=== PATIENT | female | born 1950 | race Caucasian/White ===

== ENCOUNTER 2018-01-25 16:34 | Emergency (ER) | payer OTHER ==
[2018-01-25] MEDS ORDERED: IBUPROFEN 400 MG TAB ONE (18:50)
[2018-01-25] MEDS ORDERED: HYDROCODONE/APAP 5/325 MG TAB ONE (18:50)
[2018-01-25] MEDS ORDERED: TETANUS & DIPHTHERIA TOX,ADULT 0.5 ML VIAL ONE (18:51)
[2018-01-25] MEDS ORDERED: LIDOCAINE 1% W/EPI 1:100,000 MDV 50 ML VIAL ONE (18:51)
--- NOTE | 2018-01-25 19:31 | RAD REPORT ---
EXAM DESCRIPTION: CT - CTHCSPWOC - 01/25/2018 7:18 pm CLINICAL HISTORY: Fall with head and neck injury, laceration COMPARISON: None. TECHNIQUE: Axial 5 mm thick images of the head were obtained. Axial 2 mm thick images of the cervic al spine were obtained with sagittal and coronal reconstruction images generated and reviewed. All CT scans are performed using dose optimization technique as appropriate and may include automated exposure control or mA/KV adjustment according to patient size. FINDINGS: No intracranial hemorrhage, mass, edema or acute intracranial finding. No acute cortical i nfarction. Patient has only mild degree of atrophy. Ventricles are normal in size. There is very exte nsive diminished attenuation throughout the cerebral hemispheric white matter with basal ganglia invo lvement. Brainstem is involved as well. Arterial and physiologic calcifications are present. No extra -axial fluid collections. Mastoid air cells and paranasal sinuses are clear. No globe or orbit abnorm ality seen. Cervical body height and alignment are normal. Slight retrolisthesis of C5 on C6 noted. Prominent C5- 6 disc space narrowing. C3-4, C4-5 and C6-7 disc space narrowing also present. Mild bony foraminal en croachment changes at C5-6. No fracture or acute bony abnormality. No pathologic bone process. Centra l canal detail is inherently limited. No paraspinal mass or hematoma. IMPRESSION: No hemorrhage, edema or acute intracranial finding. 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 Cervical spine degenerative change with no acute finding.
--- NOTE | 2018-01-25 19:34 | EDPHYS ---
Physician Documentation [facility] Name: Gabriella Leone Age: 67 yrs Sex: Female : 1950 Arrival Date: 01/25/2018 Time: 16:37 Bed 25 Private MD: Asa Muniz V ED Physician Adrien Ruiz HPI: 01/25 18:38 This 67 yrs old Female presents to ER via Ambulatory with complaints of Head jose Injury-Adult. 18:38 The patient or guardian reports a laceration, pain, tenderness. The complaints affect jose the top of head and left frontal area. Context of injury: The problem was sustained at home. Onset: The symptoms/episode began/occurred just prior to arrival. Associated signs and symptoms: The patient has no apparent associated signs or symptoms, Loss of consciousness: This patient did not experience any loss of consciousness. Severity of symptoms: At their worst the symptoms were mild, in the emergency department the symptoms are unchanged. The patient has not experienced similar symptoms in the past. Historical: - Allergies: 16:50 No Known Allergies; rk2 - Immunization history:: Flu vaccine status is unknown. - Social history:: Smoking status: Patient/guardian denies using tobacco, never smoked. - Family history:: not pertinent. ROS: 18:38 Constitutional: Negative for fever, chills, and weight loss, Eyes: Negative for injury, jose pain, redness, and discharge, ENT: Negative for injury, pain, and discharge, Neck: Negative for injury, pain, and swelling, Cardiovascular: Negative for chest pain, palpitations, and edema, Respiratory: Negative for shortness of breath, cough, wheezing, and pleuritic chest pain, Abdomen/GI: Negative for abdominal pain, nausea, vomiting, diarrhea, and constipation, Back: Negative for injury and pain, : Negative for injury, bleeding, discharge, and swelling, MS/Extremity: Negative for injury and deformity, Neuro: Negative for headache, weakness, numbness, tingling, and seizure, Psych: Negative for depression, anxiety, suicide ideation, homicidal ideation, and hallucinations, Allergy/Immunology: Negative for hives, rash, and allergies, Endocrine: Negative for neck swelling, polydipsia, polyuria, polyphagia, and marked weight changes, Hematologic/Lymphatic: Negative for swollen nodes, abnormal bleeding, and unusual bruising. 18:38 Skin: Positive for laceration(s), of the top of head and left frontal area. Exam: 18:38 Constitutional: This is a well developed, well nourished patient who is awake, alert, jose and in no acute distress. Eyes: Pupils equal round and reactive to light, extra-ocular motions intact. Lids and lashes normal. Conjunctiva and sclera are non-icteric and not injected. Cornea within normal limits. Periorbital areas with no swelling, redness, or edema. ENT: Nares patent. No nasal discharge, no septal abnormalities noted. Tympanic membranes are normal and external auditory canals are clear. Oropharynx with no redness, swelling, or masses, exudates, or evidence of obstruction, uvula midline. Mucous membranes moist. Neck: Trachea midline, no thyromegaly or masses palpated, and no cervical lymphadenopathy. Supple, full range of motion without nuchal rigidity, or vertebral point tenderness. No Meningismus. Chest/axilla: Normal chest wall appearance and motion. Nontender with no deformity. No lesions are appreciated. Cardiovascular: Regular rate and rhythm with a normal S1 and S2. No gallops, murmurs, or rubs. Normal PMI, no JVD. No pulse deficits. Respiratory: Lungs have equal breath sounds bilaterally, clear to auscultation and percussion. No rales, rhonchi or wheezes noted. No increased work of breathing, no retractions or nasal flaring. Abdomen/GI: Soft, non-tender, with normal bowel sounds. No distension or tympany. No guarding or rebound. No evidence of tenderness throughout. Back: No spinal tenderness. No costovertebral tenderness. Full range of motion. Female : Normal external genitalia. Skin: Warm, dry with normal turgor. Normal color with no rashes, no lesions, and no evidence of cellulitis. 18:38 Head/face: Noted is contusion, a laceration(s), that is deep, that is jagged, of the top of head, left frontal area and right frontal area, of the . Vital Signs: 16:50 BP 153 / 94; Pulse 65; Resp 17; Temp 97.8; Pulse Ox 100% on R/A; Weight 66.22 kg; Pain rk2 7/10; 18:30 BP 187 / 81; Pulse 63; Resp 18; Pulse Ox 99% ; aj1 19:40 BP 155 / 99; Pulse 67; Resp 19; Pulse Ox 96% on R/A; aj1 20:37 BP 165 / 93; Pulse 65; Resp 18; Pulse Ox 99% on R/A; aj1 Mika Coma Score: 16:46 Eye Response: spontaneous(4). Verbal Response: oriented(5). Motor Response: obeys rk2 commands(6). Total: 15. 18:38 Eye Response: spontaneous(4). Verbal Response: oriented(5). Motor Response: obeys jose commands(6). Total: 15. Laceration: 18:38 Wound Repair of 3cm ( 1.2in ) subcutaneous laceration to top of head. Gross jose contamination.. Distal neuro/vascular/tendon intact. Anesthesia: Wound infiltrated with 8 mls of 1% lidocaine w/ Epi. Wound prep: Extensive cleansing by me, Wound irrigation, Copious irrigation. Skin closed with 2 1-0 [place] using staple gun. Dressed with non-adherent dressing. Patient tolerated well. MDM: 18:30 Patient medically screened. jose 18:36 Patient medically screened. [facility] 19:23 Data reviewed: vital signs, nurses notes, radiologic studies, CT scan. [facility] 01/25 18:38 Order name: CT Head C Spine; Complete Time: 19:33 [facility] 01/25 18:38 Order name: Prolene, Sutures; Complete Time: 19:34 [facility] 01/25 18:38 Order name: Dressing - Wound; Complete Time: 19:35 [facility] 01/25 18:38 Order name: Gloves, Sterile; Complete Time: 19:35 [facility] 01/25 18:38 Order name: Setup Suture Tray; Complete Time: 19:35 [facility] Administered Medications: 19:00 Drug: Motrin 400 mg Route: PO; aj1 20:03 Follow up: Response: No adverse reaction aj1 19:00 Drug: [place] 5 mg-325 mg 1 tabs Route: PO; aj1 20:03 Follow up: Response: No adverse reaction aj1 19:05 Drug: Lidocaine-Epinephrine -1%: (1:100,000) 10 ml {Note: Given by Dr. Ruiz .} aj1 Volume: 20 ml; Route: Infiltration; 20:03 Follow up: Response: No adverse reaction aj1 20:02 Drug: Tetanus-Diphtheria Toxoid Adult 0.5 ml {Show Host/Hostess: BESOS. Exp: aj1 05/06/2020. Lot #: [id number]. } Route: IM; Site: right gluteus; 20:37 Follow up: Response: No adverse reaction aj 20:02 Drug: Ancef 1 grams Route: IM; Site: left gluteus; aj1 20:37 Follow up: Response: No adverse reaction aj1 20:02 Drug: Bactrim (160 mg-800 mg (DS) 1 tablet Route: PO; aj1 20:03 Follow up: Response: No adverse reaction aj Disposition: 01/25/18 19:34 Discharged to Home. Impression: Laceration with foreign body of other part of head - scalp, top, Fall due to bumping against object - wall, Multiple sclerosis. - Condition is Stable. - Discharge Instructions: Laceration Care, Adult, Facial Laceration, Laceration Care, Adult, Kelh-ov-Forw, Facial Laceration, Wyjw-ek-Adjj. - Prescriptions for Keflex 500 mg Oral Capsule - take 1 capsule by ORAL route every 6 hours for 7 days; 28 capsule. Bactrim DS 800- 160 mg Oral Tablet - take 1 tablet by ORAL route every 12 hours for 7 days; 14 tablet. Tylenol- Codeine #3 300-30 mg Oral Tablet - take 1 tablet by ORAL route every 4 hours As needed; 20 tablet. - Medication Reconciliation Form, Thank You Letter, Antibiotic Education, Prescription Opioid Use form. - Follow up: Asa Muniz; When: 2 - 3 days; Reason: Recheck today's complaints, Continuance of care, Re-evaluation by your physician. - Problem is new. - Symptoms have improved. Signatures: Dispatcher [employer] EDJackie Sanchez, RN RN aj1 Adrien Ruiz MD MD cha Kidder, Rhonda RN RN rk2
--- NOTE | 2018-01-25 19:34 | ER ---
Nurse's Notes [facility] Name: Gabriella Leone Age: 67 yrs Sex: Female : 1950 Arrival Date: 01/25/2018 Time: 16:37 Bed 25 Private MD: Asa Muniz V Diagnosis: Laceration with foreign body of other part of head-scalp, top;Fall due to bumping against object-wall;Multiple sclerosis Presentation: 01/25 16:46 Presenting complaint: Patient states: Pt. comes from home c/o laceration to head 2nd to rk2 mechanical fall. Pt. states that she lost her balance and fell hitting her head on the house... Denies LOC or blood thinners. Pt. states that she has MS and balance problems. Transition of care: patient was not received from another setting of care. Mechanism of Injury: resulted from a fall, while walking. Onset of symptoms was January 25, 2018. Initial Sepsis Screen: Does the patient meet any 2 criteria? No. Patient's initial sepsis screen is negative. Does the patient have a suspected source of infection? No. Patient's initial sepsis screen is negative. Care prior to arrival: None. 16:46 Method Of Arrival: Ambulatory rk2 16:46 Acuity: QUANG 3 rk2 Triage Assessment: 20:38 Neuro: Reports headache. aj1 Historical: - Allergies: 16:50 No Known Allergies; rk2 - Immunization history:: Flu vaccine status is unknown. - Social history:: Smoking status: Patient/guardian denies using tobacco, never smoked. - Family history:: not pertinent. Screenin:30 Abuse screen: Denies threats or abuse. Denies injuries from another. Nutritional aj1 screening: No deficits noted. Tuberculosis screening: No symptoms or risk factors identified. 20:38 Fall Risk None identified. aj1 Assessment: 18:30 General: Appears in no apparent distress. uncomfortable, Behavior is calm, cooperative, aj1 appropriate for age. Pain: Complains of pain in top of head Pain does not radiate. Pain currently is 8 out of 10 on a pain scale. Quality of pain is described as aching. Neuro: Level of Consciousness is awake, alert, obeys commands, Oriented to person, place, time, situation, Pig Breeder are equal bilaterally Moves all extremities. Weakness in left arm(s) leg(s) Patient states that this is normal for her due to her MS. Speech is normal, Facial symmetry appears normal, Pupils are PERRLA, Intact Denies LOC, vomiting. Cardiovascular: Patient's skin is warm and dry. Respiratory: Airway is patent Respiratory effort is even, unlabored, Respiratory pattern is regular, symmetrical. GI: No signs and/or symptoms were reported involving the gastrointestinal system. : No signs and/or symptoms were reported regarding the genitourinary system. EENT: No signs and/or symptoms were reported regarding the EENT system. Derm: No signs and/or symptoms reported regarding the dermatologic system. Skin is pink, warm \T\ dry. normal. Musculoskeletal: No signs and/or symptoms reported regarding the musculoskeletal system. Circulation, motion, and sensation intact. 19:40 Reassessment: Patient appears in no apparent distress at this time. No changes from aj1 previously documented assessment. Patient and/or family updated on plan of care and expected duration. Pain level reassessed. Patient is alert, oriented x 3, equal unlabored respirations, skin warm/dry/pink. 20:37 Reassessment: Patient appears in no apparent distress at this time. No changes from aj1 previously documented assessment. Patient and/or family updated on plan of care and expected duration. Pain level reassessed. Patient is alert, oriented x 3, equal unlabored respirations, skin warm/dry/pink. Vital Signs: 16:50 BP 153 / 94; Pulse 65; Resp 17; Temp 97.8; Pulse Ox 100% on R/A; Weight 66.22 kg; Pain rk2 7/10; 18:30 BP 187 / 81; Pulse 63; Resp 18; Pulse Ox 99% ; aj1 19:40 BP 155 / 99; Pulse 67; Resp 19; Pulse Ox 96% on R/A; aj1 20:37 BP 165 / 93; Pulse 65; Resp 18; Pulse Ox 99% on R/A; aj1 Wise Coma Score: 16:46 Eye Response: spontaneous(4). Verbal Response: oriented(5). Motor Response: obeys rk2 commands(6). Total: 15. 18:38 Eye Response: spontaneous(4). Verbal Response: oriented(5). Motor Response: obeys jose commands(6). Total: 15. ED Course: 16:37 Patient arrived in ED. mr 16:38 Asa Muniz MD is Private Physician. mr 16:49 Triage completed. rk2 16:50 Arm band placed on left wrist. rk2 18:27 Jackie Brady, MORA is Primary Nurse. aj1 18:30 Adrien Ruiz MD is Attending Physician. jose 18:30 Patient has correct armband on for positive identification. Bed in low position. Call aj1 light in reach. Side rails up X 1. 18:30 No provider procedures requiring assistance completed. aj1 19:[address] vm2 19:18 CT Head C Spine In Process Unspecified. EDMS 19:33 Asa Muniz MD is Referral Physician. jose 19:40 Wound care: wound to top of head cleaned with betadine and normal saline by Dr. vale Ruiz. 20:39 Patient did not have IV access during this emergency room visit. aj1 Administered Medications: 19:00 Drug: Motrin 400 mg Route: PO; aj1 20:03 Follow up: Response: No adverse reaction aj1 19:00 Drug: [place] 5 mg-325 mg 1 tabs Route: PO; aj1 20:03 Follow up: Response: No adverse reaction aj1 19:05 Drug: Lidocaine-Epinephrine -1%: (1:100,000) 10 ml {Note: Given by Dr. Ruiz .} aj1 Volume: 20 ml; Route: Infiltration; 20:03 Follow up: Response: No adverse reaction aj1 20:02 Drug: Tetanus-Diphtheria Toxoid Adult 0.5 ml {Front Desk Lead: [place]. Exp: aj1 05/06/2020. Lot #: [id number]. } Route: IM; Site: right gluteus; 20:37 Follow up: Response: No adverse reaction aj1 20:02 Drug: Ancef 1 grams Route: IM; Site: left gluteus; aj1 20:37 Follow up: Response: No adverse reaction aj1 20:02 Drug: Bactrim (160 mg-800 mg (DS) 1 tablet Route: PO; aj1 20:03 Follow up: Response: No adverse reaction aj1 Outcome: 19:34 Discharge ordered by . jose 20:39 Discharged to home ambulatory. aj1 20:39 Condition: good 20:39 Discharge instructions given to patient, Instructed on discharge instructions, follow up and referral plans. no drinking with medication, no driving heavy equipment, medication usage, wound care, Demonstrated understanding of instructions, follow-up care, medications, wound care, Prescriptions given X 3. 20:39 Patient left the ED. aj1 Signatures: Dispatcher [employer] Jackie Benjamin RN RN aj1 Adrien Ruiz MD MD cha Rivera, Maria mr ChaseArchana kong 2 Leela Soler RN RN rk2
[2018-01-25] MEDS ORDERED: CEFAZOLIN SODIUM 1 GM/VIAL ONE (19:50)
[2018-01-25] MEDS ORDERED: SMZ./TMP. 800/160 MG TABLET ONE (19:50)
== END 2018-01-25 20:39 | disposition home or self-care (01) ==
LOC: ER 16:34
PROC: 0JQ00ZZ Repair Scalp Subcutaneous Tissue and Fascia, Open Approach (ICD-10-PCS; principal; 2018-01-25)
DX: S01.02XA Laceration with foreign body of scalp, initial encounter (principal); W18.09XA Striking against other object with subsequent fall, initial encounter; Y93.9 Activity, unspecified; Y92.009 Unspecified place in unspecified non-institutional (private) residence as the place of occurrence of the external cause; Z23 Encounter for immunization; G35 Multiple sclerosis
CPT/HCPCS: 12002; 70450; 72125; 90714; J0690; 96372; 99284

== ENCOUNTER 2020-12-12 06:07 | Inpatient (IN) | payer OTHER ==
--- OUTSIDE RECORDS SUMMARY | 2020-12-12 06:10 | XMS REPORT | Continuity of Care Document ---
:1950 Author Organization [facility] t Address [address] [place] [address] Care Team Providers Name Role Phone Radiology Attending Clinician Unavailable Doctor Unassigned, Name Attending Clinician Unavailable Problems This patient has no known problems. Allergies, Adverse Reactions, Alerts This patient has no known allergies or adverse reactions. Medications This patient has no known medications. Procedures This patient has no known procedures. Encounters Start End Encounter Admission Attending Care Care Encounter Source Date/Time Date/Time Type Type Clinicians Facility Department ID 2019-04-28 2019-04-28 [facility] Radiology [facility] [id number] 14:41:07 23:59:00 Encounter Agustín [id number] [place] [id number] [place] [id number] 2019-04-28 2019-04-28 Orders Doctor SACHA [id number] 00:00:00 00:00:00 Only Unassigned, [place] [id number] [place] [facility] [id number] Results This patient has no known results.
[2020-12-12] MEDS ORDERED: ONDANSETRON 4 MG/2 ML VIAL ONE (07:47)
[2020-12-12] MEDS ORDERED: MORPHINE 4 MG/ML SYR ONE (07:47)
--- NOTE | 2020-12-12 07:47 | ER ---
Nurse's Notes [facility] Name: Gabriella Leone Age: 70 yrs Sex: Female : 1950 Arrival Date: 12/12/2020 Time: 06:09 Bed 16 Private MD: Diagnosis: Fracture of unspecified part of neck of left femur Presentation: 12/12 06:05 Chief complaint: EMS states: patient fell down hit her head on the wall sustained mg2 abrasion on the left side and complaints of pain left leg. no LOC. 06:05 Coronavirus screen: Client denies travel out of the [place] in the last 14 days. At this mg2 time, the client does not indicate any symptoms associated with coronavirus-19. Ebola Screen: Patient negative for fever greater than or equal to 101.5 degrees Fahrenheit, and additional compatible Ebola Virus Disease symptoms Patient denies exposure to infectious person. Patient denies travel to an Ebola-affected area in the 21 days before illness onset. 06:05 Method Of Arrival: EMS: [facility] mg2 06:05 Initial Sepsis Screen: Does the patient meet any 2 criteria? No. Patient's initial rr5 sepsis screen is negative. Does the patient have a suspected source of infection? No. Patient's initial sepsis screen is negative. Risk Assessment: Do you want to hurt yourself or someone else? Patient reports no desire to harm self or others. Onset of symptoms was December 12, 2020 at 03:00. 06:05 Acuity: QUANG 2 rr5 07:49 Care prior to arrival: None. Mechanism of Injury: Fall from standing position. Trauma bb event details: Injury occurred in the [facility], Injury occurred: at home. Injury occurred: December 12, 2020. Historical: - Allergies: 06:10 No Known Allergies; rr5 - PMHx: 06:10 Hypertension; throid disease; Multiple Sclerosis; ulcerative colitis; Depression; rr5 - PSHx: 06:10 double mastectomy; rr5 - Immunization history:: Adult Immunizations up to date. - Social history:: Smoking status: unknown. - Immunization history: Last tetanus immunization:. - Family history:: not pertinent. - Hospitalizations: : No recent hospitalization is reported. Screenin:36 Abuse screen: Denies threats or abuse. Denies injuries from another. Nutritional rr5 screening: No deficits noted. Tuberculosis screening: No symptoms or risk factors identified. Fall Risk Fall in past 12 months (25 points). IV access (20 points). Gait- Impaired (20 pts.). Total Hopper Fall Scale indicates High Risk Score (45 or more points). Fall prevention measures have been instituted. Side Rails Up X 2 Placed Close to Nursing Station Frequent Obs/Assessments Occuring As available patient and family educated on Fall Prevention Program and Strategies. Primary Survey: 06:37 NO uncontrolled hemorrhage observed. A: The patient is alert. Airway: patent, Oral rr5 cavity: clear, gag reflex present, Trachea midline. Breathing/Chest: Respiratory pattern: regular, Respiratory effort: spontaneous, unlabored, Breath sounds: clear, Chest inspection: symmetrical rise and fall of the chest. Circulation: Pulses: palpable right dorsalis pedis artery and left dorsalis pedis artery. Disability Alert. Exposure/Environment: All clothing and personal items were removed. There is no evidence of uncontrolled external bleeding. Obvious injury(ies) are noted at this time: external rotation left leg A warming method has been applied: A warm blanket has been provided to the patient. 10:40 Reassessment Airway Airway Patent Breathing/Chest Respiratory pattern Regular ca1 Respiratory effort Spontaneous Unlabored Breath sounds Clear Chest inspection Symmetrical Circulation Heart tones Present Pulses Palpable Color [place] Temperature Warm Dry Disability Alert. Secondary Survey: 06:20 HEENT: Head Other abrasion at left occipital area. rr5 06:20 Gastrointestinal: Abdomen is soft. : No signs and/or symptoms were reported regarding rr5 the genitourinary system. Musculoskeletal: Capillary refill < 3 seconds, Reports pain in left leg. Assessment: 06:15 General: Appears in no apparent distress. uncomfortable, Behavior is calm, cooperative, rr5 appropriate for age. Pain: Complains of pain in pelvis and left leg. Neuro: Level of Consciousness is awake, alert, obeys commands, Oriented to person, place, time. EENT: No signs and/or symptoms were reported regarding the EENT system. Cardiovascular: Capillary refill < 3 seconds Patient's skin is warm and dry. Respiratory: Airway is patent Respiratory effort is even, unlabored, Respiratory pattern is regular, symmetrical. GI: No signs and/or symptoms were reported involving the gastrointestinal system. : No signs and/or symptoms were reported regarding the genitourinary system. Derm: Skin is intact, is healthy with good turgor, Skin temperature is warm. Musculoskeletal: Capillary refill < 3 seconds, Reports pain in pelvis and left leg. 07:20 Reassessment: provider at bedside. tw2 08:00 Reassessment: Patient appears in no apparent distress at this time. Patient and/or tw2 family updated on plan of care and expected duration. Pain level reassessed. Patient is alert, oriented x 3, equal unlabored respirations, skin warm/dry/pink. 09:00 Reassessment: No changes from previously documented assessment. Patient and/or family tw2 updated on plan of care and expected duration. Pain level reassessed. Patient is alert, oriented x 3, equal unlabored respirations, skin warm/dry/pink. Patient states feeling better. Patient states symptoms have improved. 09:37 Reassessment: Patient appears in no apparent distress at this time. Patient and/or iw family updated on plan of care and expected duration. Pain level reassessed. Patient is alert, oriented x 3, equal unlabored respirations, skin warm/dry/pink. Patient states feeling better. Patient states symptoms have improved. 10:40 Reassessment: Patient appears in no apparent distress at this time. Patient and/or ca1 family updated on plan of care and expected duration. Pain level reassessed. Patient is alert, oriented x 3, equal unlabored respirations, skin warm/dry/pink. 11:40 Reassessment: Patient appears in no apparent distress at this time. Patient and/or ca1 family updated on plan of care and expected duration. Pain level reassessed. Patient is alert, oriented x 3, equal unlabored respirations, skin warm/dry/pink. 12:34 Reassessment: Patient appears in no apparent distress at this time. Patient and/or ca1 family updated on plan of care and expected duration. Pain level reassessed. Patient is alert, oriented x 3, equal unlabored respirations, skin warm/dry/pink. 13:40 Reassessment: Patient appears in no apparent distress at this time. Patient and/or ca1 family updated on plan of care and expected duration. Pain level reassessed. Patient is alert, oriented x 3, equal unlabored respirations, skin warm/dry/pink. 14:45 Reassessment: Patient appears in no apparent distress at this time. Patient and/or ca1 family updated on plan of care and expected duration. Pain level reassessed. Patient is alert, oriented x 3, equal unlabored respirations, skin warm/dry/pink. 15:29 Reassessment: Patient appears in no apparent distress at this time. Patient is alert, ca1 oriented x 3, equal unlabored respirations, skin warm/dry/pink. Vital Signs: 06:05 BP 145 / 96; Pulse 72; Resp 17; Temp 98; Pulse Ox 99% ; mg2 07:00 BP 151 / 85; Pulse 71; Resp 17; Pulse Ox 99% on R/A; tw2 08:00 BP 159 / 82; Pulse 71; Resp 17; Pulse Ox 99% on R/A; tw2 09:00 BP 136 / 78; Pulse 72; Resp 17; Pulse Ox 98% on R/A; tw2 09:57 BP 124 / 77; Pulse 74; Resp 17; Pulse Ox 99% on R/A; tw2 10:40 BP 147 / 79; Pulse 82; Resp 16 S; Pulse Ox 100% on R/A; ca1 11:35 BP 125 / 80; Pulse 81; Resp 16 S; Pulse Ox 100% on R/A; ca1 12:34 BP 125 / 76; Pulse 83; Resp 16 S; Pulse Ox 100% on R/A; ca1 13:40 BP 145 / 70; Pulse 79; Resp 16 S; Pulse Ox 99% on R/A; ca1 14:45 BP 151 / 77; Pulse 86; Resp 16 S; Pulse Ox 99% on R/A; ca1 15:29 BP 134 / 87; Pulse 76; Resp 16 S; Pulse Ox 99% on R/A; ca1 Mika Coma Score: 06:05 Eye Response: spontaneous(4). Verbal Response: oriented(5). Motor Response: obeys rr5 commands(6). Total: 15. Trauma Score (Adult): 06:05 Eye Response: spontaneous(1); Verbal Response: oriented(1); Motor Response: obeys rr5 commands(2); Systolic BP: > 89 mm Hg(4); Respiratory Rate: 10 to 29 per min(4); Kempner Score: 15; Trauma Score: 12 ED Course: 06:09 Patient arrived in ED. mg2 06:10 Arm band placed on right wrist. rr5 06:12 Hubert Davis MD is Attending Physician. mh7 06:33 Carrero, Lee, MORA is Primary Nurse. rr5 06:33 Lee Carrero RN is Primary Nurse. rr5 06:34 Triage completed. rr5 06:37 Patient has correct armband on for positive identification. Bed in low position. Call rr5 light in reach. Pulse ox on. NIBP on. 06:46 XRAY Chest (1 view) In Process Unspecified. EDMS 06:47 Hip Left 2 View XRAY In Process Unspecified. EDMS 06:48 XRAY Pelvis In Process Unspecified. EDMS 06:57 CT Head C Spine In Process Unspecified. EDMS 07:00 Thermoregulation: warm blanket given to patient. tw2 07:07 Attending Physician role handed off by Hubert Davis MD rn 07:07 James Jose MD is Attending Physician. rn 07:20 Primary Nurse role handed off by Lee Carrero RN tw2 07:20 Nicole Conrad RN is Primary Nurse. tw2 07:27 Inserted saline lock: 22 gauge in left forearm, using aseptic technique. bb 07:37 EKG done, by ED staff, reviewed by James Jose MD. bb 07:45 Asa Muniz MD is Hospitalizing Provider. rn 07:45 Dior cath inserted, using sterile technique, 18 Fr., by vt, balloon inflated, to tw2 gravity drainage, urine specimen collected. adonis Evans RN served as rod greaser returned clear yellow urine. Patient tolerated well. 07:52 Patient maintains SpO2 saturation greater than 95% on room air. bb 11:00 No provider procedures requiring assistance completed. Patient admitted, IV remains in ca1 place. Administered Medications: 07:40 Drug: Zofran (Ondansetron) 4 mg Route: IVP; Site: left forearm; tw2 07:49 Follow up: Response: No adverse reaction bb 07:42 Drug: morphine 4 mg {Note: RASS 0.} Route: IVP; Site: left forearm; tw2 07:49 Follow up: Response: No adverse reaction; Pain is decreased; RASS: Alert and Calm (0) bb 11:13 Drug: morphine 2 mg {Note: rass 0.} Route: IVP; Site: left forearm; ca1 12:36 Follow up: Response: No adverse reaction; Pain is decreased; RASS: Alert and Calm (0) ca1 Output: 11:19 Urine: 300ml (Dior); Total: 300ml. ca1 Outcome: 07:46 Decision to Hospitalize by Provider. rn 15:28 Admitted to Med/surg accompanied by tech, via stretcher, room 225, with chart, Report ca1 called to MORA Artis 15:28 Condition: stable 15:28 Instructed on the need for admit. 15:29 Patient's length of stay in the Emergency Department was greater than 2 hours. Room ca1 assignmentPatient's length of stay extended due to 16:03 Patient left the ED. ca1 Signatures: Dispatcher [employer] EDMS Cristina Marte RN RN bb Inga Chau RN RN iw James Jose MD MD rn Wise, Tara, RN RN tw2 Diaz Roy RN RN mg2 Lee Carrero RN RN rr5 Margret Yoder RN RN ca1 Hubert Davis MD MD 7 Corrections: (The following items were deleted from the chart) 11:19 10:58 Immunization history Last tetanus immunization: ca1 ca1
--- NOTE | 2020-12-12 07:47 | EDPHYS ---
Physician Documentation [facility] Name: Gabriella Leone Age: 70 yrs Sex: Female : 1950 Arrival Date: 12/12/2020 Time: 06:09 Bed 16 Private MD: ED Physician James Jose HPI: 12/12 06:22 This 70 yrs old Female presents to ER via EMS with complaints of Fall Injury. mh7 06:22 Details of fall: The patient fell from an upright position, while walking. mh7 06:23 Onset: The symptoms/episode began/occurred today, at an unknown time. Associated mh7 injuries: The patient sustained injury to the head, contusion, left hip, painful injury. Severity of symptoms: At their worst the symptoms were moderate, earlier today, in the emergency department the symptoms are unchanged. 07:46 The patient has not experienced similar symptoms in the past. The patient has not rn recently seen a physician. Fall from standing, left hip pain and hit head, no LOC.. Historical: - Allergies: 06:10 No Known Allergies; rr5 - PMHx: 06:10 Hypertension; throid disease; Multiple Sclerosis; ulcerative colitis; Depression; rr5 - PSHx: 06:10 double mastectomy; rr5 - Immunization history:: Adult Immunizations up to date. - Social history:: Smoking status: unknown. - Immunization history: Last tetanus immunization:. - Family history:: not pertinent. - Hospitalizations: : No recent hospitalization is reported. ROS: 06:23 Constitutional: Negative for fever, chills, and weight loss, Eyes: Negative for injury, mh7 pain, redness, and discharge, ENT: Negative for injury, pain, and discharge, Neck: Negative for injury, pain, and swelling, Cardiovascular: Negative for chest pain, palpitations, and edema, Respiratory: Negative for shortness of breath, cough, wheezing, and pleuritic chest pain, Abdomen/GI: Negative for abdominal pain, nausea, vomiting, diarrhea, and constipation, Back: Negative for injury and pain, : Negative for injury, bleeding, discharge, and swelling, Skin: Negative for injury, rash, and discoloration, Neuro: Negative for headache, weakness, numbness, tingling, and seizure, Psych: Negative for depression, anxiety, suicide ideation, homicidal ideation, and hallucinations, Allergy/Immunology: Negative for hives, rash, and allergies, Endocrine: Negative for neck swelling, polydipsia, polyuria, polyphagia, and marked weight changes, Hematologic/Lymphatic: Negative for swollen nodes, abnormal bleeding, and unusual bruising. Exam: 06:23 Eyes: Pupils equal round and reactive to light, extra-ocular motions intact. Lids and mh7 lashes normal. Conjunctiva and sclera are non-icteric and not injected. Cornea within normal limits. Periorbital areas with no swelling, redness, or edema. ENT: Nares patent. No nasal discharge, no septal abnormalities noted. Tympanic membranes are normal and external auditory canals are clear. Oropharynx with no redness, swelling, or masses, exudates, or evidence of obstruction, uvula midline. Mucous membranes moist. 06:23 Neck: Trachea midline, no thyromegaly or masses palpated, and no cervical lymphadenopathy. Supple, full range of motion without nuchal rigidity, or vertebral point tenderness. No Meningismus. Chest/axilla: Normal chest wall appearance and motion. Nontender with no deformity. No lesions are appreciated. Cardiovascular: Regular rate and rhythm with a normal S1 and S2. No gallops, murmurs, or rubs. Normal PMI, no JVD. No pulse deficits. Respiratory: Lungs have equal breath sounds bilaterally, clear to auscultation and percussion. No rales, rhonchi or wheezes noted. No increased work of breathing, no retractions or nasal flaring. Abdomen/GI: Soft, non-tender, with normal bowel sounds. No distension or tympany. No guarding or rebound. No evidence of tenderness throughout. Back: No spinal tenderness. No costovertebral tenderness. Full range of motion. Skin: Warm, dry with normal turgor. Normal color with no rashes, no lesions, and no evidence of cellulitis. 06:23 Neuro: Awake and alert, GCS 15, oriented to person, place, time, and situation. Cranial nerves II-XII grossly intact. Motor strength 5/5 in all extremities. Sensory grossly intact. Cerebellar exam normal. Normal gait. Psych: Awake, alert, with orientation to person, place and time. Behavior, mood, and affect are within normal limits. 06:23 Constitutional: The patient appears in no acute distress, alert, awake, uncomfortable. 06:23 Head/face: Noted is contusion, that is superficial, of the left temporal area. 06:23 ENT: TM's: hemotympanum, is not appreciated, bilaterally. 06:23 Musculoskeletal/extremity: Extremities: noted in the left hip: pain, tenderness, ROM: limited active range of motion, in the left leg, limited passive range of motion, in the left leg, Circulation is intact in all extremities. Pulses: are normal with no appreciated deficits, Sensation intact. Compartment Syndrome exam of affected extremity: is normal. no numbness, no tingling, no sensation deficit, no palor, no weak pulses, Joints: the left hip displays tenderness, Weight bearing: is unable to bear weight, Tendon exam: specific tendon testing normal through active and passive range of motion Calves: are non-tender, have equal circumference. Vital Signs: 06:05 BP 145 / 96; Pulse 72; Resp 17; Temp 98; Pulse Ox 99% ; mg2 07:00 BP 151 / 85; Pulse 71; Resp 17; Pulse Ox 99% on R/A; tw2 08:00 BP 159 / 82; Pulse 71; Resp 17; Pulse Ox 99% on R/A; tw2 09:00 BP 136 / 78; Pulse 72; Resp 17; Pulse Ox 98% on R/A; tw2 09:57 BP 124 / 77; Pulse 74; Resp 17; Pulse Ox 99% on R/A; tw2 10:40 BP 147 / 79; Pulse 82; Resp 16 S; Pulse Ox 100% on R/A; ca1 11:35 BP 125 / 80; Pulse 81; Resp 16 S; Pulse Ox 100% on R/A; ca1 12:34 BP 125 / 76; Pulse 83; Resp 16 S; Pulse Ox 100% on R/A; ca1 13:40 BP 145 / 70; Pulse 79; Resp 16 S; Pulse Ox 99% on R/A; ca1 14:45 BP 151 / 77; Pulse 86; Resp 16 S; Pulse Ox 99% on R/A; ca1 15:29 BP 134 / 87; Pulse 76; Resp 16 S; Pulse Ox 99% on R/A; ca1 Mika Coma Score: 06:05 Eye Response: spontaneous(4). Verbal Response: oriented(5). Motor Response: obeys rr5 commands(6). Total: 15. Trauma Score (Adult): 06:05 Eye Response: spontaneous(1); Verbal Response: oriented(1); Motor Response: obeys rr5 commands(2); Systolic BP: > 89 mm Hg(4); Respiratory Rate: 10 to 29 per min(4); Mika Score: 15; Trauma Score: 12 MDM: 07:07 Patient medically screened. rn 07:09 ED course: Signed out to me by Dr. Davis, thinks possible hip fracture, ct head and rn lisset pending for fall.. 07:44 Differential diagnosis: contusion, fracture, sprain, strain. Data reviewed: vital rn signs, nurses notes, radiologic studies, CT scan, plain films, and as a result, I will admit patient. Test interpretation: by ED physician or midlevel provider: plain radiologic studies, Left femur with femoral neck fracture and mild impaction. Counseling: I had a detailed discussion with the patient and/or guardian regarding: the historical points, exam findings, and any diagnostic results supporting the discharge/admit diagnosis. Response to treatment: the patient's symptoms have mildly improved after treatment, and as a result, I will admit patient. Admission orders: after a detailed discussion of the patient's condition and case, the admit orders are written by me. ED course: Pt with left femoral neck fracture and impaction from fall, will admit to Dr. muniz and consult orthopedics. . 07:46 Medication response: morphine partially relieved the patient's pain. rn 07:47 Differential diagnosis: abrasion, closed head injury, multiple trauma. rn 07:48 Data reviewed: lab test result(s), EKG, and as a result, I will. rn 12/12 06:14 Order name: Basic Metabolic Panel [facility] 12/12 06:14 Order name: CBC with Diff; Complete Time: 09:29 [facility] 12/12 06:14 Order name: Type And Screen [facility] 12/12 06:14 Order name: Protime (+inr); Complete Time: 09:29 [facility] 12/12 06:14 Order name: Ptt, Activated; Complete Time: 09:29 [facility] 12/12 08:16 Order name: Urine Dipstick--Ancillary (enter results); Complete Time: 09:29 12/12 06:14 Order name: CT Head C Spine; Complete Time: 09:29 [facility] 12/12 06:14 Order name: XRAY Chest (1 view); Complete Time: 09:29 [facility] 12/12 06:14 Order name: XRAY Pelvis [facility] 12/12 06:14 Order name: Hip Left 2 View XRAY; Complete Time: 09:29 [facility] 12/12 09:03 Order name: CBC Smear Scan; Complete Time: 09:29 [facility] 12/12 10:00 Order name: COVID-19 : Document "Date of Symptom Onset" if Symptomatic. 12/12 13:49 Order name: CORONAVIRUS [facility] 12/12 14:44 Order name: SARS-COV-2 RT PCR [facility] 12/12 06:14 Order name: Labs collected and sent; Complete Time: 10:21 [facility] 12/12 06:14 Order name: Urine Dipstick-Ancillary (obtain specimen); Complete Time: 07:49 [facility] 12/12 06:14 Order name: EKG - Nurse/Tech; Complete Time: 07:47 [facility] 12/12 07:48 Order name: Dior; Complete Time: 07:49 tw2 Administered Medications: 07:40 Drug: Zofran (Ondansetron) 4 mg Route: IVP; Site: left forearm; tw2 07:49 Follow up: Response: No adverse reaction bb 07:42 Drug: morphine 4 mg {Note: RASS 0.} Route: IVP; Site: left forearm; tw2 07:49 Follow up: Response: No adverse reaction; Pain is decreased; RASS: Alert and Calm (0) bb 11:13 Drug: morphine 2 mg {Note: rass 0.} Route: IVP; Site: left forearm; ca1 12:36 Follow up: Response: No adverse reaction; Pain is decreased; RASS: Alert and Calm (0) ca1 Disposition: 12/12/20 07:46 Hospitalization ordered by Asa Muniz for Inpatient Admission. Preliminary diagnosis is Fracture of unspecified part of neck of left femur. - Bed requested for Telemetry/MedSurg (Inpatient). - Status is Inpatient Admission. ca1 - Condition is Stable. - Problem is new. - Symptoms have improved. Signatures: Dispatcher [employer] [facility] Emily Barron Roman, MD MD rn Wise, Tara, RN RN tw2 Lee Carrero RN RN rr5 Margret Yoder RN RN ca1 Hubert Davis MD MD mh7 Cristina Marte RN bb Corrections: (The following items were deleted from the chart) 11:19 10:58 Immunization history Last tetanus immunization: ca1 ca1 14:50 07:46 Hospitalization Ordered by Asa Muniz MD for Inpatient Admission. Preliminary bd diagnosis is Fracture of unspecified part of neck of left femur. Bed requested for Telemetry/MedSurg (Inpatient). Status is Inpatient Admission. Condition is Stable. Problem is new. Symptoms have improved. rn 16:03 14:50 12/12/2020 07:46 Hospitalization Ordered by Asa Muniz MD for Inpatient ca1 Admission. Preliminary diagnosis is Fracture of unspecified part of neck of left femur. Bed requested for Telemetry/MedSurg (Inpatient). Status is Inpatient Admission. Condition is Stable. Problem is new. Symptoms have improved. bd
--- NOTE | 2020-12-12 08:29 | RAD REPORT ---
EXAM DESCRIPTION: CT - [id number] - 12/12/2020 6:57 am CLINICAL HISTORY: Trauma, head and neck injury. Trauma COMPARISON: Head C Spine Mpr Wo Con dated 01/25/2018; SOFT TISSUE NECK W CONTRAST dated 02/22/2013 TECHNIQUE: Axial 5 mm thick images of the head were obtained. Axial 2 mm thick images of the cervical spine were obtained with sagittal and coronal reconstruction images generated and reviewed. All CT scans are performed using dose optimization technique as appropriate and may include automated exposure control or mA/KV adjustment according to patient size. FINDINGS: CT HEAD WITHOUT CONTRAST: No acute hemorrhage, hydrocephalus or extra-axial collection is identified. Mild generalized brain at rophy is present with moderate periventricular and deep white matter chronic microvascular ischemic c hanges. No areas of brain edema or midline shift. The paranasal sinuses and mastoids are clear.The calvarium is intact. CT CERVICAL SPINE WITHOUT CONTRAST: No fracture or subluxation.Moderate midcervical degenerative changes present multilevel disc thinning and posterior osteophyte.No prevertebral soft tissues swelling is identified. IMPRESSION: No acute intracranial or cervical spine findings. Moderate midcervical degenerative changes.
[2020-12-12 08:33] LABS: Urine Blood TRACE (NEG); Urine Glucose TRACE (NEG); Urine Protein NEGATIVE (NEG); Urine Specific Gravity 1.025 (1.005-1.030); Urine pH 7.5 (5.0-7.0)
[2020-12-12 08:48] LABS: Absolute Lymphocytes (CBC) 0.4 K/uL (0.7-4.9); Basophils % 0.2 % (0-1.3); Hematocrit 38.9 % (36.0-45.0); Lymphocytes % 4.8 % (15.3-44.8); MPV 7.8 fL (7.6-11.3); RBC Red Blood Cell Count 4.04 M/uL (3.86-4.86)
--- NOTE | 2020-12-12 09:01 | RAD REPORT ---
EXAM DESCRIPTION: RAD - Hip Left 2 View - 12/12/2020 6:47 am CLINICAL HISTORY: trauma Fall, pain COMPARISON: None FINDINGS: AP pelvis and two views left hip submitted Subcapital fracture is seen involving the proximal left femur with mild impaction and varus angulatio n. No dislocation is seen. IMPRESSION: Subcapital left hip fracture.
[2020-12-12 09:09] LABS: Protime INR 1.09
--- NOTE | 2020-12-12 09:09 | RAD REPORT ---
EXAM DESCRIPTION: RAD - Chest Single View - 12/12/2020 6:46 am CLINICAL HISTORY: TRAUMA Chest pain. COMPARISON: Chest Pa And Lat (2 Views) dated 01/29/2016; CHEST PA AND LAT 2 VIEW dated 02/22/2013; [place] [facility] PA AND LAT 2 VIEW dated 01/31/2013; CHEST SINGLE VIEW dated 07/18/2009 FINDINGS: Portable technique limits examination quality. The right hemidiaphragm is elevated. Right axillary ivanna dissection clips seen. The lungs are grossl y clear of acute infiltrate. The heart is normal in size. No displaced fractures. IMPRESSION: No acute intrathoracic process suspected.
[2020-12-12 09:21] LABS: Blood Morphology Comment NOT SEEN (NOT SEEN); Platelet Estimate ADEQ; White Blood Cell Scan OK (OK)
[2020-12-12 10:39] LABS: Potassium 3.6 mmol/L (3.5-5.1)
[2020-12-12] MEDS ORDERED: MORPHINE 2 MG/ML SYR ONE (11:28)
--- NOTE | 2020-12-12 12:24 | RAD REPORT ---
EXAM DESCRIPTION: RAD - Pelvis - 12/12/2020 6:48 am CLINICAL HISTORY: Trauma Fall, pain COMPARISON: None FINDINGS: AP pelvis and two views left hip submitted Subcapital fracture is seen involving the proximal left femur with mild impaction and varus angulatio n. No dislocation is seen. IMPRESSION: Subcapital left hip fracture.
[2020-12-12] MEDS: D5.45NS W/KCL 20MEQ 1,000 ML IV SCH (16:31)
[2020-12-12] MEDS ORDERED: ONDANSETRON 4 MG/2 ML VIAL IV PRN (16:31)
[2020-12-12 16:33] VITALS: BMI 28.7
[2020-12-12] MEDS: MORPHINE 2 MG/ML SYR IV PRN (16:53)
[2020-12-12] MEDS ORDERED: INFLUENZA VACCINE (for 3y+) 0.5 ML DOSE IMVAC ONE (17:00)
[2020-12-12] MEDS ORDERED: GABAPENTIN 100 MG CAP PO SCH (17:00)
--- NOTE | 2020-12-12 20:58 | P.HP ---
Certification for Inpatient Patient admitted to: Inpatient With expected LOS: >2 Midnights Practitioner: I am a practitioner with admitting privileges, knowledge of patient current condition, hospital course, and medical plan of care. Services: Services provided to patient in accordance with Admission requirements found in Title 42 Section 412.3 of the Code of Federal Regulations Patient History Date of Service: 12/12/20 Reason for admission: BROKE L HIP History of Present Illness: JOHN AT NIGHT FELL OVER THE DOOR KEPT FOR DOG TO BE IN PLACE AND BROKE L HIP. SHE HAS MS AND HAS LIMITED MOBILITY FROM IT. Allergies aspirin Allergy (Verified 05/14/16 08:38) Itching/Hives/Rash No Known Allergi Allergy (Uncoded 04/18/17 15:02) Unknown No Known Allergies Allergy (Uncoded 01/25/18 20:44) Unknown Home medications list reviewed: Yes Home Medications: Duloxetine HCl [Cymbalta] 60 mg PO DAILY 05/14/16 Fluticasone Propionate [Flovent Diskus] 50 mcg IH DAILY 05/14/16 Levothyroxine [Synthroid*] 75 mcg PO [id number] 05/14/16 Propranolol HCl [Propranolol HCl ER] 60 mg PO DAILY 05/14/16 Gabapentin [Neurontin*] 200 mg PO SEECOM 04/18/17 hydrOXYzine HCL [Atarax] 25 mg PO DAILY 04/18/17 Permethrin [Elimite (Acticin) 5%*] 60 appl TOP ONCE #1 tube 04/19/17 Mesalamine [Asacol Hd] 1,200 mg PO TID 09/04/17 - Past Medical/Surgical History Has patient received pneumonia vaccine in the past: Yes Diabetic: No -: HTN -: hypothyroid -: double mastectomy -: ulcerative colitis -: MS -: fibromyalgia -: double mastectomy - Family History Father -: Diabetes, Cancer Mother -: Cancer - Social History Smoking Status: Never smoker Alcohol use: No CD- Drugs: No Caffeine use: Yes Place of Residence: Home Review of Systems 10-point ROS is otherwise unremarkable General: Weakness Physical Examination - Vital Signs Temperature: 97.6 F Blood Pressure: 175/79 Pulse: 72 Respirations: 17 Pulse Ox (%): 92 - Physical Exam General: Moderate distress HEENT: Atraumatic, PERRLA, Mucous membr. moist/pink, EOMI, Sclerae nonicteric Neck: Supple, 2+ carotid pulse no bruit, No LAD, Without JVD or thyroid abnormality Respiratory: Clear to auscultation bilaterally, Normal air movement Cardiovascular: Regular rate/rhythm, Normal S1 S2 Gastrointestinal: Normal bowel sounds, No tenderness Musculoskeletal: No tenderness Integumentary: No rashes Neurological: Normal gait, Normal speech, Normal strength at 5/5 x4 extr, Normal tone, Normal affect Lymphatics: No axilla or inguinal lymphadenopathy - Studies Laboratory Data (last 24 hrs) 12/12/20 08:24: PT 12.6 H, INR 1.09, APTT 26.5 12/12/20 08:24: WBC 9.10, Hgb 13.8, Hct 38.9, Plt Count 197 12/12/20 08:24: Sodium 139, Potassium 3.6, BUN 11, Creatinine 0.74, Glucose 173 H Assessment and Plan - Problems (Diagnosis) (1) Hip fracture, left Current Visit: Yes Status: Acute Plan: MEDICALLY CLEARED WITH MILD TO MODERATE RISK OF SURGERY AND RECOVERY. SHE WILL BE SENT TO REHAB FACILITY AFTER SURGERY. Qualifiers: Encounter type: initial encounter Fracture type: closed Qualified Code(s): S72.002A - Fracture of unspecified part of neck of left femur, initial encounter for closed fracture (2) Multiple sclerosis Current Visit: Yes Status: Chronic Plan: STABLE DOES NOT SEEM TO PROGRESS FAST. - Advance Directives Does patient have a Living Will: Yes Does patient have a Durable POA for Healthcare: Yes
[2020-12-12] MEDS ORDERED: ENOXAPARIN 40 MG/0.4 ML SQ SCH (21:00)
[2020-12-12] MEDS: MESALAMINE 1.2 GM PO SCH (21:00)
[2020-12-12 21:21] LABS: MPV 8.2 fL (7.6-11.3)
[2020-12-12 22:30] LABS: Platelet Estimate ADEQ
[2020-12-13] MEDS: D5.45NS W/KCL 20MEQ 1,000 ML IV SCH ×3 (02:31→21:00)
[2020-12-13] MEDS: MORPHINE 2 MG/ML SYR IV PRN ×5 (02:35→22:38)
--- NOTE | 2020-12-13 04:26 | CON ---
Date of Consultation: 12/12/2020 History Of Present Illness: This is my first time I am seeing this patient to my knowledge. She is a 70-year-old female who unfortunately fell injuring her left lower extremity. She was seen and exam ined in the emergency department where she was ruled out for other injuries; however, x-rays were aspen en of her left hip, which demonstrate a highly displaced left femoral neck fracture. Physical Examination: All of her long bones and joints are palpated without pain or crepitation except for her left hip whi ch is painful with any palpation or manipulation. Diagnostic Studies: Review of x-rays do reveal a displaced left femoral neck fracture. There is no significant degenerative change of the hip. Assessment: This is a 70-year-old female now with apparently isolated left femoral neck fracture. Plan: At this time, we discussed with the patient her diagnosis as well as treatment options and we will pursue a bipolar hip arthroplasty most likely tomorrow. I will be speaking with her primary car e physician and we will get this scheduled with the operating room. All of her questions are otherwi se answered including risks, benefits, and alternatives. SE/MODL Voice ID: [id number] Report ID: [id number]
[2020-12-13] MEDS: LEVOTHYROXINE SOD 0.075 MG TAB PO SCH (05:23)
[2020-12-13 07:44] LABS: Absolute Lymphocytes (CBC) 0.6 K/uL (0.7-4.9); Basophils % 0.6 % (0-1.3); Hematocrit 35.9 % (36.0-45.0); Lymphocytes % 9.6 % (15.3-44.8); MPV 8.6 fL (7.6-11.3); RBC Red Blood Cell Count 3.69 M/uL (3.86-4.86)
[2020-12-13] MEDS: FLUTICASONE PROPIONATE 50 MCG IH SCH (09:00)
[2020-12-13] MEDS: PROPRANOLOL HCL 60 MG SA CAP PO SCH (09:00)
[2020-12-13] MEDS ORDERED: HOME MED 1 EA UNK (Duloxetine Hcl [Cymbalta] 60 MG Capsule.Dr) PO SCH (09:00)
[2020-12-13] MEDS: DULOXETINE 30 MG CAP PO SCH (09:00)
[2020-12-13] MEDS ORDERED: HOME MED 1 EA UNK (Hydroxyzine Hcl [Atarax] 50 MG Tablet) PO SCH (09:00)
[2020-12-13] MEDS: hydrOXYzine HCL 25 MG TAB PO SCH (09:00)
[2020-12-13] MEDS: MESALAMINE 1.2 GM PO SCH ×3 (09:00→21:00)
[2020-12-13] MEDS: PERMETHRIN 5% 60 GM TUBE TOP SCH (09:00)
[2020-12-13] MEDS ORDERED: FENTANYL CITR 100 MCG/2 ML ONE (15:56)
[2020-12-13] MEDS ORDERED: MIDAZOLAM HCL 2 MG/2 ML INJ ONE (15:57)
[2020-12-13] MEDS ORDERED: LIDOCAINE 1% MPF 5 ML VIAL ONE (15:57)
[2020-12-13] MEDS ORDERED: propofoL 200 MG/20 ML VIAL IV ONE (15:57)
[2020-12-13] MEDS ORDERED: GLYCOPYRROLATE 0.2 MG/ML SYR ONE (15:57)
[2020-12-13] MEDS ORDERED: KETOROLAC 30 MG/ML INJ ONE (15:58)
[2020-12-13] MEDS ORDERED: NEOSTIGMINE 1 MG/ML -5 ML ONE (15:58)
[2020-12-13] MEDS ORDERED: dexAMETHasone 4 MG/ML VIAL ONE (15:58)
[2020-12-13] MEDS ORDERED: ONDANSETRON 4 MG/2 ML VIAL ONE (15:58)
[2020-12-13] MEDS ORDERED: ROCURONIUM 50 MG/5 ML VIAL IV ONE (15:58)
[2020-12-13] MEDS ORDERED: Phenylephrine HCl 10 MG/ML 1 ML VIAL ONE (15:59)
[2020-12-13] MEDS ORDERED: Ringers Lactate 1,000 ML IV ONE (16:30)
[2020-12-13] MEDS ORDERED: CEFAZOLIN/SWI 1gm 1 GM/10 ML SYR ONE (16:48)
[2020-12-13] MEDS ORDERED: TRANEXAMIC ACID 1,000 MG in NA CHLORIDE 0.9% 50 ML IV ONE ×4 (17:00)
[2020-12-13] MEDS ORDERED: MORPHINE 10 MG/ML VIAL ONE (17:37)
--- NOTE | 2020-12-13 18:50 | P.BOP ---
Preoperative diagnosis: left femoral neck fracture Postoperative diagnosis: same Primary procedure: left hip bipolar hemiarthoplasty Estimated blood loss: 200cc Anesthesia: General Complications: None Transferred to: Recovery Room Condition: Good
--- NOTE | 2020-12-13 20:26 | P.PN ---
Subjective Date of Service: 12/13/20 Chief Complaint: BROKE L HIP I SAW HER IN AM. SHE IS STABLE. SHE IS GOING FOR SURGERY TODAY AFTER 5 PM. Review of Systems 10-point ROS is otherwise unremarkable Physical Examination - Vital Signs Temperature: 97.0 F Blood Pressure: 122/55 Pulse: 73 Respirations: 16 Pulse Ox (%): 95 - Physical Exam General: Mild distress HEENT: Atraumatic, PERRLA, EOMI Neck: Supple, JVD not distended Respiratory: Clear to auscultation bilaterally, Normal air movement Cardiovascular: Regular rate/rhythm, Normal S1 S2 Gastrointestinal: Normal bowel sounds, No tenderness Musculoskeletal: No tenderness Integumentary: No rashes Neurological: Normal speech, Normal tone, Normal affect Lymphatics: No axilla or inguinal lymphadenopathy - Studies Medications List Reviewed: Yes Assessment And Plan - Current Problems (Diagnosis) (1) Hip fracture, left Current Visit: Yes Status: Acute Plan: MEDICALLY CLEARED WITH MILD TO MODERATE RISK OF SURGERY AND RECOVERY. SHE WILL BE SENT TO REHAB FACILITY AFTER SURGERY. SURGERY TODAY. PT CONSULT REHAB CONSULT. Qualifiers: Encounter type: initial encounter Fracture type: closed Qualified Code(s): S72.002A - Fracture of unspecified part of neck of left femur, initial encounter for closed fracture (2) Multiple sclerosis Current Visit: Yes Status: Chronic Plan: STABLE DOES NOT SEEM TO PROGRESS FAST.
--- NOTE | 2020-12-14 00:37 | OP ---
Date of Procedure: 12/13/2020 Surgeon: Junior Graham MD Preoperative Diagnosis: Left femoral neck fracture. Postoperative Diagnosis: Left femoral neck fracture. Procedure: Left bipolar hemiarthroplasty, which was cemented using the [place] stem. Estimated Blood Loss: 200 cc. There were no complications. No pathology or specimen sent. Indications For Operation: Ms. Leone is a 70-year-old female who unfortunately suffers from MS who fell injuring her left lower extremity. X-rays demonstrated a highly displaced left femoral neck fr acture. Risks, benefits, and alternatives of this procedure had been discussed with the patient. Sh e states she understands things as presented and wishes to proceed. Description Of Procedure: The patient was to taken to the operating room and placed in supine positi on. General anesthesia was obtained by staff. Following this, she was then transferred to the opera tive table and then rolled right side down with an axillary roll. She was then properly positioned u sing hip positioners and her left lower extremity was then prepped and draped in usual sterile fashio n for the procedure. Following this, a standard posterior lateral incision was taken down carefully through skin and soft tissues. Meticulous hemostasis was being maintained using bipolar electrocaute ry. A small stab wound was made in the fascia and the gluteal tendon was palpated to ensure correct placement of the incision. This was then taken up to near the tip of the greater trochanter where th e gluteus mey muscles were encountered. It was then curved gently backward and the gluteus maxim us spread using finger pressure. The Ch[place] was then placed very carefully to avoid injury to the sciatic nerve and a great deal of bursal was encountered. This was very gently and carefully removed , which allowed for removal of the external rotators and capsule, which were then tagged for later re pair. The neck was then brought up. It was fractured fairly low. A saw cut was then made and the f ragments of the neck were then cleared. The head was then removed and sized using the caliper. It s ized to approximately a 45.5 to 46, essentially midway between. Any soft tissues were removed from i nside the acetabulum and attention was then turned to the femur. The dust box tender was used to laterali ze and then a canal-finding reamer was then used. It was then broached to a size 1. After this, the canal was then copiously irrigated with saline until it runs clear. The bone plug was placed to catarino ropriate depth. It was again irrigated. Third generation cementation technique was then used to adair ce the [place] stem. It was held in place, which was denoted by the trial while replacing it and it w as held in place until the cement hardened. Any unsupported cement was removed. Attention was then turned back to the head. A size 45 +4 was used. It reduces fairly well, but there did not appear to be much associated with it. There was really no . She does have full extensio n. It appeared to be stable at 90 degrees flexion, full adduction and at least 30 to 45 degrees of i nternal rotation, however, without this may be slightly undersized. Therefore it was trie d with a 45, the 45 appeared to fit better with better suction. It was also stable with above parame ters. Therefore, this was selected for the final bearing. The final bearing was then gently tapped into place. It was then reduced. The hip was then brought through range of motion and was found aga in to be stable. The wound was copiously irrigated with sterile saline and the external rotators and capsule repaired back to the trochanter via bone tunnels. Wound was again irrigated and the fascia was closed in a watertight fashion using interrupted Vicryl sutures followed by irrigation and closur e of the skin with Vicryl followed by oskar. The patient was then placed in Aquacel dressing, awak ened, and taken to recovery room in good condition. There were no complications. SE/MODL Voice ID: [id number] Report ID: [id number]
[2020-12-14] MEDS ORDERED: CEFAZOLIN/SWI 1gm 1 GM/10 ML SYR IV SCH (00:55)
[2020-12-14] MEDS ORDERED: CEFAZOLIN/NS 1gm 1 GM/50 ML BAG IVPB SCH (01:00)
[2020-12-14] MEDS: D5.45NS W/KCL 20MEQ 1,000 ML IV SCH ×2 (02:32→17:00)
[2020-12-14] MEDS ORDERED: CEFAZOLIN/SWI 1gm 1 GM/10 ML SYR ONE (02:58)
[2020-12-14] MEDS: MORPHINE 2 MG/ML SYR IV PRN ×5 (04:33→21:55)
[2020-12-14] MEDS: LEVOTHYROXINE SOD 0.075 MG TAB PO SCH (06:19)
[2020-12-14 06:20] LABS: Absolute Lymphocytes (CBC) 0.4 K/uL (0.7-4.9); Basophils % 0.1 % (0-1.3); Hematocrit 31.1 % (36.0-45.0); Lymphocytes % 6.6 % (15.3-44.8); MPV 8.2 fL (7.6-11.3); RBC Red Blood Cell Count 3.11 M/uL (3.86-4.86)
[2020-12-14] MEDS: PERMETHRIN 5% 60 GM TUBE TOP SCH (08:38)
[2020-12-14] MEDS: DULOXETINE 30 MG CAP PO SCH (08:38)
[2020-12-14] MEDS: MESALAMINE 1.2 GM PO SCH ×3 (08:39→20:24)
[2020-12-14] MEDS: CEFAZOLIN/SWI 1gm 1 GM/10 ML SYR IV SCH ×2 (09:00→17:43)
[2020-12-14] MEDS: hydrOXYzine HCL 25 MG TAB PO SCH (09:00)
[2020-12-14] MEDS: FLUTICASONE PROPIONATE 50 MCG IH SCH (09:00)
[2020-12-14] MEDS: PROPRANOLOL HCL 60 MG SA CAP PO SCH (11:22)
--- NOTE | 2020-12-14 16:38 | P.PN ---
Subjective Date of Service: 12/14/20 Chief Complaint: BROKE L HIP Subjective: Improving I SAW HER IN AM. SHE IS STABLE. SHE IS GOING FOR SURGERY TODAY AFTER 5 PM. SHE HAD SURGERY YESTERDAY. STABLE SO FAR. Review of Systems 10-point ROS is otherwise unremarkable General: Weakness Physical Examination - Vital Signs Temperature: 96.7 F Blood Pressure: 119/58 Pulse: 80 Respirations: 17 Pulse Ox (%): 97 - Physical Exam General: Mild distress HEENT: Atraumatic, PERRLA, EOMI Neck: Supple, JVD not distended Respiratory: Clear to auscultation bilaterally, Normal air movement Cardiovascular: Regular rate/rhythm, Normal S1 S2 Gastrointestinal: Normal bowel sounds, No tenderness Musculoskeletal: No tenderness Integumentary: No rashes Neurological: Normal speech, Normal tone, Normal affect Lymphatics: No axilla or inguinal lymphadenopathy - Studies Medications List Reviewed: Yes Assessment And Plan - Current Problems (Diagnosis) (1) Hip fracture, left Current Visit: Yes Status: Acute Plan: MEDICALLY CLEARED WITH MILD TO MODERATE RISK OF SURGERY AND RECOVERY. SHE WILL BE SENT TO REHAB FACILITY AFTER SURGERY. SURGERY TODAY. PT CONSULT REHAB CONSULT. ANTICOAGULATION. Qualifiers: Encounter type: initial encounter Fracture type: closed Qualified Code(s): S72.002A - Fracture of unspecified part of neck of left femur, initial encounter for closed fracture (2) Multiple sclerosis Current Visit: Yes Status: Chronic Plan: STABLE DOES NOT SEEM TO PROGRESS FAST.
[2020-12-14] MEDS: ENOXAPARIN 40 MG/0.4 ML SQ SCH (17:43)
[2020-12-15] MEDS: LEVOTHYROXINE SOD 0.075 MG TAB PO SCH (05:21)
[2020-12-15] MEDS: FLUTICASONE PROPIONATE 50 MCG IH SCH (09:00)
[2020-12-15] MEDS: PERMETHRIN 5% 60 GM TUBE TOP SCH (09:00)
[2020-12-15] MEDS: DULOXETINE 30 MG CAP PO SCH (10:44)
[2020-12-15] MEDS: hydrOXYzine HCL 25 MG TAB PO SCH (10:44)
[2020-12-15] MEDS: MESALAMINE 1.2 GM PO SCH ×3 (10:45→21:00)
[2020-12-15] MEDS: PROPRANOLOL HCL 60 MG SA CAP PO SCH (10:45)
[2020-12-15] MEDS: MORPHINE 2 MG/ML SYR IV PRN (10:57)
[2020-12-15] MEDS: D5.45NS W/KCL 20MEQ 1,000 ML IV SCH (11:09)
--- NOTE | 2020-12-15 16:12 | P.PN ---
Subjective Date of Service: 12/15/20 Chief Complaint: BROKE L HIP Subjective: Improving I SAW HER IN AM. SHE IS STABLE. SHE IS GOING FOR SURGERY TODAY AFTER 5 PM. SHE HAD SURGERY YESTERDAY. STABLE SO FAR. STABLE. WAITING FOR REHAB APPROVAL. Review of Systems 10-point ROS is otherwise unremarkable General: Weakness Physical Examination - Vital Signs Temperature: 97.2 F Blood Pressure: 126/70 Pulse: 76 Respirations: 17 Pulse Ox (%): 93 - Physical Exam General: Alert, Oriented x3 HEENT: Atraumatic, PERRLA, EOMI Neck: Supple, JVD not distended Respiratory: Clear to auscultation bilaterally, Normal air movement Cardiovascular: Regular rate/rhythm, Normal S1 S2 Gastrointestinal: Normal bowel sounds, No tenderness Musculoskeletal: No tenderness Integumentary: No rashes Neurological: Normal speech, Normal affect, Abnormal strength, Abnormal tone Lymphatics: No axilla or inguinal lymphadenopathy - Studies Medications List Reviewed: Yes Assessment And Plan - Current Problems (Diagnosis) (1) Hip fracture, left Current Visit: Yes Status: Acute Plan: MEDICALLY CLEARED WITH MILD TO MODERATE RISK OF SURGERY AND RECOVERY. SHE WILL BE SENT TO REHAB FACILITY AFTER SURGERY. SURGERY TODAY. PT CONSULT REHAB CONSULT. ANTICOAGULATION. Qualifiers: Encounter type: initial encounter Fracture type: closed Qualified Code(s): S72.002A - Fracture of unspecified part of neck of left femur, initial encounter for closed fracture (2) Multiple sclerosis Current Visit: Yes Status: Chronic Plan: STABLE DOES NOT SEEM TO PROGRESS FAST.
[2020-12-15] MEDS: ENOXAPARIN 40 MG/0.4 ML SQ SCH (17:50)
[2020-12-15 21:15] LABS: MPV 8.2 fL (7.6-11.3)
[2020-12-15 22:04] LABS: Platelet Estimate ADEQ; Platelets, Giant SEEN
[2020-12-16] MEDS: LEVOTHYROXINE SOD 0.075 MG TAB PO SCH (05:27)
[2020-12-16] MEDS: D5.45NS W/KCL 20MEQ 1,000 ML IV SCH (07:04)
[2020-12-16] MEDS: PERMETHRIN 5% 60 GM TUBE TOP SCH (09:00)
[2020-12-16] MEDS: FLUTICASONE PROPIONATE 50 MCG IH SCH (09:00)
[2020-12-16] MEDS: DULOXETINE 30 MG CAP PO SCH (09:05)
[2020-12-16] MEDS: PROPRANOLOL HCL 60 MG SA CAP PO SCH (09:06)
[2020-12-16] MEDS: hydrOXYzine HCL 25 MG TAB PO SCH (09:06)
--- NOTE | 2020-12-16 11:13 | P.PN ---
Subjective Date of Service: 12/16/20 Chief Complaint: BROKE L HIP Subjective: Improving I SAW HER IN AM. SHE IS STABLE. SHE IS GOING FOR SURGERY TODAY AFTER 5 PM. SHE HAD SURGERY YESTERDAY. STABLE SO FAR. STABLE. WAITING FOR REHAB APPROVAL. FEELS BETTER , NO CHANGES. CLARIFIED [facility]. Review of Systems 10-point ROS is otherwise unremarkable General: Weakness Physical Examination - Vital Signs Temperature: 97.0 F Blood Pressure: 121/65 Pulse: 80 Respirations: 19 Pulse Ox (%): 92 - Physical Exam General: Oriented x3, Mild distress HEENT: Atraumatic, PERRLA, EOMI Neck: Supple, JVD not distended Respiratory: Clear to auscultation bilaterally, Normal air movement Cardiovascular: Regular rate/rhythm, Normal S1 S2 Gastrointestinal: Normal bowel sounds, No tenderness Musculoskeletal: No tenderness Integumentary: No rashes Neurological: Normal speech, Normal tone, Normal affect Lymphatics: No axilla or inguinal lymphadenopathy - Studies Medications List Reviewed: Yes Assessment And Plan - Current Problems (Diagnosis) (1) Hip fracture, left Current Visit: Yes Status: Acute Plan: MEDICALLY CLEARED WITH MILD TO MODERATE RISK OF SURGERY AND RECOVERY. SHE WILL BE SENT TO REHAB FACILITY AFTER SURGERY. SURGERY TODAY. PT CONSULT REHAB CONSULT. ANTICOAGULATION. WE ARE WAITING FOR ANSWER FROM INSURANCE COMPANY ABOUT REHAB. Qualifiers: Encounter type: initial encounter Fracture type: closed Qualified Code(s): S72.002A - Fracture of unspecified part of neck of left femur, initial encounter for closed fracture (2) Multiple sclerosis Current Visit: Yes Status: Chronic Plan: STABLE DOES NOT SEEM TO PROGRESS FAST.
[2020-12-16] MEDS ORDERED: HOME MED 1 EA UNK PO SCH (14:00)
[2020-12-16] MEDS: BALSALAZIDE 750 MG PO SCH ×2 (14:00→21:21)
[2020-12-16] MEDS: ENOXAPARIN 40 MG/0.4 ML SQ SCH (16:45)
[2020-12-17] MEDS: D5.45NS W/KCL 20MEQ 1,000 ML IV SCH ×2 (02:15→05:00)
[2020-12-17] MEDS: LEVOTHYROXINE SOD 0.075 MG TAB PO SCH (05:12)
[2020-12-17 06:43] LABS: Absolute Lymphocytes (CBC) 1.1 K/uL (0.7-4.9); Basophils % 0.8 % (0-1.3); Hematocrit 31.2 % (36.0-45.0); Lymphocytes % 18.3 % (15.3-44.8); MPV 8.8 fL (7.6-11.3); RBC Red Blood Cell Count 3.22 M/uL (3.86-4.86)
[2020-12-17] MEDS: PERMETHRIN 5% 60 GM TUBE TOP SCH (09:00)
[2020-12-17] MEDS: FLUTICASONE PROPIONATE 50 MCG IH SCH (09:00)
[2020-12-17] MEDS: DULOXETINE 30 MG CAP PO SCH (09:44)
[2020-12-17] MEDS: hydrOXYzine HCL 25 MG TAB PO SCH (09:44)
[2020-12-17] MEDS: BALSALAZIDE 750 MG PO SCH ×3 (09:46→21:00)
[2020-12-17] MEDS: TRAMADOL HCL 50 MG TAB PO PRN (09:47)
[2020-12-17] MEDS: PROPRANOLOL HCL 60 MG SA CAP PO SCH (09:53)
--- NOTE | 2020-12-17 12:59 | P.PN ---
Subjective Date of Service: 12/17/20 Chief Complaint: BROKE L HIP Subjective: Improving I SAW HER IN AM. SHE IS STABLE. SHE IS GOING FOR SURGERY TODAY AFTER 5 PM. SHE HAD SURGERY YESTERDAY. STABLE SO FAR. STABLE. WAITING FOR REHAB APPROVAL. FEELS BETTER , NO CHANGES. CLARIFIED [facility]. R[place]D LEG PAIN. CHRONIC. Review of Systems 10-point ROS is otherwise unremarkable General: Weakness Physical Examination - Vital Signs Temperature: 96.8 F Blood Pressure: 141/68 Pulse: 79 Respirations: 16 Pulse Ox (%): 94 - Physical Exam General: Alert, In no apparent distress HEENT: Atraumatic, PERRLA, EOMI Neck: Supple, JVD not distended Respiratory: Clear to auscultation bilaterally, Normal air movement Cardiovascular: Regular rate/rhythm, Normal S1 S2 Gastrointestinal: Normal bowel sounds, No tenderness Musculoskeletal: No tenderness Integumentary: No rashes Neurological: Other (WASTED MUSCLES FROM MS) Lymphatics: No axilla or inguinal lymphadenopathy - Studies Medications List Reviewed: Yes Assessment And Plan - Current Problems (Diagnosis) (1) Hip fracture, left Current Visit: Yes Status: Acute Plan: MEDICALLY CLEARED WITH MILD TO MODERATE RISK OF SURGERY AND RECOVERY. SHE WILL BE SENT TO REHAB FACILITY AFTER SURGERY. SURGERY TODAY. PT CONSULT REHAB CONSULT. ANTICOAGULATION. WE ARE WAITING FOR ANSWER FROM INSURANCE COMPANY ABOUT REHAB. Qualifiers: Encounter type: initial encounter Fracture type: closed Qualified Code(s): S72.002A - Fracture of unspecified part of neck of left femur, initial encounter for closed fracture (2) Multiple sclerosis Current Visit: Yes Status: Chronic Plan: STABLE DOES NOT SEEM TO PROGRESS FAST. START GABAENTI FOR NERVE PAIN.
[2020-12-17] MEDS: GABAPENTIN 300 MG CAP PO SCH ×2 (13:29→20:54)
[2020-12-17] MEDS: ENOXAPARIN 40 MG/0.4 ML SQ SCH (16:20)
[2020-12-18] MEDS: LEVOTHYROXINE SOD 0.075 MG TAB PO SCH (05:48)
[2020-12-18] MEDS: hydrOXYzine HCL 25 MG TAB PO SCH (08:21)
[2020-12-18] MEDS: PROPRANOLOL HCL 60 MG SA CAP PO SCH (08:22)
[2020-12-18] MEDS: BALSALAZIDE 750 MG PO SCH ×3 (08:23→20:41)
[2020-12-18] MEDS: DULOXETINE 30 MG CAP PO SCH (08:24)
[2020-12-18] MEDS: GABAPENTIN 300 MG CAP PO SCH ×3 (08:24→20:40)
[2020-12-18] MEDS: PERMETHRIN 5% 60 GM TUBE TOP SCH (08:25)
[2020-12-18] MEDS: FLUTICASONE PROPIONATE 50 MCG IH SCH (09:00)
[2020-12-18] MEDS: TRAMADOL HCL 50 MG TAB PO PRN (13:59)
[2020-12-18] MEDS: ENOXAPARIN 40 MG/0.4 ML SQ SCH (17:00)
[2020-12-18] MEDS: TAMSULOSIN 0.4 MG SR CAP PO SCH (20:40)
[2020-12-18] MEDS: JUVEN PACKET PO SCH (21:00)
[2020-12-18 21:37] LABS: MPV 8.1 fL (7.6-11.3)
[2020-12-18 23:10] LABS: Platelet Estimate ADEQ
--- NOTE | 2020-12-19 01:38 | PN ---
Gabriella Leone is also waiting for placement by [employer]. [employer] as usually is ta [place] multiple days to answer yes or no for rehab facility. Gabriella has a broken hip on the left side. She needs occupational and physical therapy. Her status is complicated by multiple sclerosis, which is chronic and stable at this point, but she is limited in her mobility. She has wasted muscles. S he has to walk with a walker, which is why she deserves inpatient therapy if possible. We are marvin steele from [facility]. SELVIN/BREANA Voice ID: [id number] Report ID: [id number]
[2020-12-19] MEDS: LEVOTHYROXINE SOD 0.075 MG TAB PO SCH (06:18)
[2020-12-19] MEDS: TRAMADOL HCL 50 MG TAB PO PRN ×3 (06:22→20:13)
[2020-12-19] MEDS: BALSALAZIDE 750 MG PO SCH ×3 (09:00→20:08)
[2020-12-19] MEDS: JUVEN PACKET PO SCH ×2 (09:00→20:08)
[2020-12-19] MEDS: PERMETHRIN 5% 60 GM TUBE TOP SCH (09:00)
[2020-12-19] MEDS: FLUTICASONE PROPIONATE 50 MCG IH SCH (09:00)
[2020-12-19] MEDS: hydrOXYzine HCL 25 MG TAB PO SCH (09:19)
[2020-12-19] MEDS: DULOXETINE 30 MG CAP PO SCH (09:20)
[2020-12-19] MEDS: PROPRANOLOL HCL 60 MG SA CAP PO SCH (09:20)
[2020-12-19] MEDS: GABAPENTIN 300 MG CAP PO SCH ×3 (09:20→20:07)
[2020-12-19] MEDS: ENOXAPARIN 40 MG/0.4 ML SQ SCH (17:00)
[2020-12-19] MEDS: TAMSULOSIN 0.4 MG SR CAP PO SCH (20:06)
--- NOTE | 2020-12-20 01:17 | PN ---
Subjective: Gabriella is still waiting for [facility] or rehab placement. Insurance company is taking his own time. It will be slow pace to approve or disapprove anything here. Physical Examination: Vital Signs: Blood pressure 105/67, temperature 97.1. HEENT: No JVD. No carotid bruits. Chest: Clear. Heart: Regular. Lab Examination: Last lab is on , was stable with sugar of 211, platelets of 255. RVD/MODL Voice ID: [id number] Report ID: [id number]
[2020-12-20] MEDS: LEVOTHYROXINE SOD 0.075 MG TAB PO SCH (05:31)
[2020-12-20 07:10] LABS: Absolute Lymphocytes (CBC) 1.8 K/uL (0.7-4.9); Hematocrit 30.3 % (36.0-45.0); Lymphocytes % 17.1 % (15.3-44.8); MPV 8.6 fL (7.6-11.3); RBC Red Blood Cell Count 3.14 M/uL (3.86-4.86)
[2020-12-20] MEDS: JUVEN PACKET PO SCH ×2 (09:00→21:05)
[2020-12-20] MEDS: FLUTICASONE PROPIONATE 50 MCG IH SCH (09:00)
[2020-12-20] MEDS: PERMETHRIN 5% 60 GM TUBE TOP SCH (09:00)
[2020-12-20] MEDS: BALSALAZIDE 750 MG PO SCH ×3 (09:00→21:00)
[2020-12-20] MEDS: PROPRANOLOL HCL 60 MG SA CAP PO SCH (09:00)
[2020-12-20] MEDS: DULOXETINE 30 MG CAP PO SCH (09:21)
[2020-12-20] MEDS: TRAMADOL HCL 50 MG TAB PO PRN ×2 (09:21→18:07)
[2020-12-20] MEDS: GABAPENTIN 300 MG CAP PO SCH ×3 (09:21→21:05)
[2020-12-20] MEDS: hydrOXYzine HCL 25 MG TAB PO SCH (09:22)
[2020-12-20 09:24] LABS: Blood Morphology Comment NOT SEEN (NOT SEEN); Platelet Estimate ADEQ; White Blood Cell Scan OK (OK)
[2020-12-20] MEDS: ENOXAPARIN 40 MG/0.4 ML SQ SCH (17:00)
[2020-12-20] MEDS: TAMSULOSIN 0.4 MG SR CAP PO SCH (21:05)
--- NOTE | 2020-12-20 22:03 | PN ---
Subjective: Gabriella is also stable. Denies any chest pain, nausea, vomiting. Generally, she is weak. We just had a phone call today from the case planners that she has been rejected for rehab floor transfer and now we have to wait for insurance to approve for [facility]entiary. Now that will take a long duration one more time for insurance company to approve. Her prognosis remains guarded. Continue current medication. RVD/MODL Voice ID: [id number] Report ID: [id number] [facility]
[2020-12-21] MEDS: LEVOTHYROXINE SOD 0.075 MG TAB PO SCH (05:12)
[2020-12-21] MEDS: TRAMADOL HCL 50 MG TAB PO PRN ×2 (05:16→20:38)
[2020-12-21] MEDS: FLUTICASONE PROPIONATE 50 MCG IH SCH (09:00)
[2020-12-21] MEDS: BALSALAZIDE 750 MG PO SCH ×3 (09:00→20:39)
[2020-12-21] MEDS: JUVEN PACKET PO SCH ×2 (09:00→20:40)
[2020-12-21] MEDS: PERMETHRIN 5% 60 GM TUBE TOP SCH (09:00)
[2020-12-21] MEDS: PROPRANOLOL HCL 60 MG SA CAP PO SCH (10:23)
[2020-12-21] MEDS: hydrOXYzine HCL 25 MG TAB PO SCH (10:24)
[2020-12-21] MEDS: GABAPENTIN 300 MG CAP PO SCH ×3 (10:24→20:38)
[2020-12-21] MEDS: DULOXETINE 30 MG CAP PO SCH (10:24)
[2020-12-21] MEDS: ENOXAPARIN 40 MG/0.4 ML SQ SCH (17:00)
[2020-12-21] MEDS: TAMSULOSIN 0.4 MG SR CAP PO SCH (20:38)
--- NOTE | 2020-12-21 20:49 | PN ---
Subjective: Ms. Leone once again is waiting for insurance company's approval for [facility] now. They rejected her transfer to rehab. She has MS. She has hip fracture. She does ambulate with a walker and I am not sure why they refused rehab placement at this point. Clinically, she is stable. Physical Examination: Vital Signs: Blood pressure 109/65, pulse 73, temperature 97.1. Chest: Clear. Heart: Regular. Abdomen: No guarding, rebound, rigidity. Neurological: Generalized weakness and muscle wasting from multiple sclerosis. Assessment And Plan: Hip fracture, left subcapital femur fracture. Waiting for therapy placement. Prognosis is fair. RVD/MODL Voice ID: [id number] Report ID: [id number]
[2020-12-22] MEDS: LEVOTHYROXINE SOD 0.075 MG TAB PO SCH (05:52)
[2020-12-22] MEDS ORDERED: hydrOXYzine HCL 25 MG TAB PO PRN (08:49)
--- NOTE | 2020-12-22 08:50 | P.PN ---
Subjective Date of Service: 12/22/20 Primary Care Provider: Dr. Muniz([facility] for him today) Chief Complaint: BROKE L HIP Subjective: Doing well Physical Examination - Vital Signs Temperature: 97 F Blood Pressure: 110/56 Pulse: 75 Respirations: 19 Pulse Ox (%): 98 - Studies Medications List Reviewed: Yes Assessment & Plan Discharge Plan: Other (penitentiary facility) Plan to discharge in: 48 Hours Physician Review Additional Text: Physical exam: Patient alert, cooperative. No complaints noted Heart: Regular rate rhythm Lungs: Clear to auscultation Abdomen: Soft nontender nondistended Extremities: Good range of motion. No focal deficits. Postoperative changes noted to the left hip Impression: Fall with left femoral neck fracture status post left bipolar hemiarthroplasty Hypertension Hypothyroidism History of colitis Depression with anxiety Postoperative anemia Asthma Plan: Fall with left femoral neck fracture status post left bipolar hemiarthroplasty: I am covering for Dr. Muniz. Patient doing well with physical therapy. Patient participating. Continue with physical therapy recommendation. Patient was denied inpatient rehab. Patient now pursuing skilled placement. Await approval. This will likely occur on Thursday. Hypertension: Continue propanolol. Losartan has been held due to adequate control with propanolol. Hypothyroidism: Continue medication History of ulcerative colitis: Continue home medication. Will provide stool softener Depression with anxiety: Continue medication including Cymbalta and Abilify. Chronic pain with history of fibromyalgia: Continue medications. Postoperative anemia: Overall stable. Will monitor closely. Asthma: Continue with her medications Time Spent Managing Pts Care (In Minutes): 55
[2020-12-22] MEDS ORDERED: DOCUSATE NA 100 MG CAP PO PRN (08:52)
[2020-12-22] MEDS: PERMETHRIN 5% 60 GM TUBE TOP SCH (09:00)
[2020-12-22] MEDS: FLUTICASONE PROPIONATE 50 MCG IH SCH (09:00)
[2020-12-22] MEDS: JUVEN PACKET PO SCH ×2 (09:00→21:13)
[2020-12-22] MEDS: BALSALAZIDE 750 MG PO SCH ×3 (09:00→21:00)
[2020-12-22] MEDS: ARIPIPRAZOLE 2 MG PO SCH (09:00)
[2020-12-22] MEDS: DULOXETINE 30 MG CAP PO SCH (09:31)
[2020-12-22] MEDS: PROPRANOLOL HCL 60 MG SA CAP PO SCH (09:31)
[2020-12-22] MEDS: GABAPENTIN 300 MG CAP PO SCH ×3 (09:31→21:12)
[2020-12-22] MEDS: TRAMADOL HCL 50 MG TAB PO PRN ×2 (09:31→16:07)
[2020-12-22] MEDS: ENOXAPARIN 40 MG/0.4 ML SQ SCH (17:00)
[2020-12-22] MEDS: TAMSULOSIN 0.4 MG SR CAP PO SCH (21:12)
[2020-12-23] MEDS: LEVOTHYROXINE SOD 0.075 MG TAB PO SCH (06:19)
--- NOTE | 2020-12-23 07:58 | P.PN ---
Subjective Date of Service: 12/23/20 Primary Care Provider: Dr. Muniz(Covring for him today) Chief Complaint: BROKE L HIP Subjective: Improving, Doing well Physical Examination - Vital Signs Temperature: 97 F Blood Pressure: 116/70 Pulse: 68 Respirations: 18 Pulse Ox (%): 96 - Studies Medications List Reviewed: Yes Assessment & Plan Discharge Plan: Other (SNF placement) Plan to discharge in: 24 Hours Physician Review Additional Text: Physical exam: Patient alert, cooperative. No complaints noted Heart: Regular rate rhythm Lungs: Clear to auscultation Abdomen: Soft nontender nondistended Extremities: Good range of motion. No focal deficits. Postoperative changes noted to the left hip Impression: Fall with left femoral neck fracture status post left bipolar hemiarthroplasty Hypertension Hypothyroidism History of colitis Depression with anxiety Postoperative anemia Asthma Plan: Fall with left femoral neck fracture status post left bipolar hemiarthroplasty: Patient doing well. Pain well controlled. Continue DVT prophylaxis. I am covering for Dr. Muniz. Patient doing well with physical therapy. Patient participating. Continue with physical therapy recommendation. Patient was denied inpatient rehab. Patient now pursuing skilled placement. Await approva l. Anticipate approval likely tomorrow. PCP/attending Dr. Muniz will take over tomorrow. I will go over plan of care with him. Hypertension: Continue propanolol. Losartan has been held due to adequate control with propanolol. Hypothyroidism: Continue medication History of ulcerative colitis: Continue home medication. Stool softener was added. Depression with anxiety: Continue medication including Cymbalta and Abilify. Chronic pain with history of fibromyalgia: Continue medications. Postoperative anemia: Overall stable. Will monitor closely. Asthma: Continue with her medications Time Spent Managing Pts Care (In Minutes): 55
[2020-12-23] MEDS: GABAPENTIN 300 MG CAP PO SCH ×3 (08:10→20:50)
[2020-12-23] MEDS: PROPRANOLOL HCL 60 MG SA CAP PO SCH (08:10)
[2020-12-23] MEDS: DULOXETINE 30 MG CAP PO SCH (08:10)
[2020-12-23] MEDS: TRAMADOL HCL 50 MG TAB PO PRN ×2 (08:11→15:56)
[2020-12-23] MEDS: JUVEN PACKET PO SCH ×2 (08:13→20:51)
[2020-12-23] MEDS: PERMETHRIN 5% 60 GM TUBE TOP SCH (08:13)
[2020-12-23] MEDS: BALSALAZIDE 750 MG PO SCH ×3 (08:13→20:55)
[2020-12-23] MEDS: ARIPIPRAZOLE 2 MG PO SCH (08:14)
[2020-12-23] MEDS: FLUTICASONE PROPIONATE 50 MCG IH SCH (09:00)
[2020-12-23] MEDS: ENOXAPARIN 40 MG/0.4 ML SQ SCH (18:02)
[2020-12-23] MEDS: TAMSULOSIN 0.4 MG SR CAP PO SCH (20:50)
[2020-12-24] MEDS: TRAMADOL HCL 50 MG TAB PO PRN ×3 (03:23→16:09)
[2020-12-24] MEDS: LEVOTHYROXINE SOD 0.075 MG TAB PO SCH (05:50)
[2020-12-24] MEDS: JUVEN PACKET PO SCH ×2 (09:00→20:23)
[2020-12-24] MEDS: BALSALAZIDE 750 MG PO SCH (09:00)
[2020-12-24] MEDS: FLUTICASONE PROPIONATE 50 MCG IH SCH (09:00)
[2020-12-24] MEDS: PERMETHRIN 5% 60 GM TUBE TOP SCH (09:00)
[2020-12-24] MEDS: ARIPIPRAZOLE 2 MG PO SCH (09:00)
[2020-12-24] MEDS: GABAPENTIN 300 MG CAP PO SCH ×3 (09:31→20:22)
[2020-12-24] MEDS: PROPRANOLOL HCL 60 MG SA CAP PO SCH (09:31)
[2020-12-24] MEDS: DULOXETINE 30 MG CAP PO SCH (09:31)
[2020-12-24] MEDS: ASACOL HD 800 MG PO SCH ×3 (10:16→20:22)
[2020-12-24] MEDS: ENOXAPARIN 40 MG/0.4 ML SQ SCH (16:09)
[2020-12-24] MEDS: TAMSULOSIN 0.4 MG SR CAP PO SCH (20:21)
--- NOTE | 2020-12-25 01:17 | PN ---
Subjective: Ms. Leone is waiting for fdc placement. Insurance company rejected her physi juana therapy placement. Currently, she is stable, sitting up and eating breakfast. She has a broken hip on the left side, status post repair. Physical Examination: Vital Signs: Blood pressure 102/56, pulse is 78, temperature 97.6. HEENT: No JVD. No carotid bruits. Chest: Clear. Heart: Regular. Abdomen: No guarding. No rebound. No rigidity. Neurological: She has weakness from MS and walks with a walker. Assessment And Plan: She is waiting for fdc placement by insurance company. Continue shan nt medications. RVD/MODL Voice ID: [id number] Report ID: [id number]
[2020-12-25] MEDS: TRAMADOL HCL 50 MG TAB PO PRN ×3 (06:06→23:48)
[2020-12-25] MEDS: LEVOTHYROXINE SOD 0.075 MG TAB PO SCH (06:06)
[2020-12-25] MEDS: ASACOL HD 800 MG PO SCH (08:52)
[2020-12-25] MEDS: ARIPIPRAZOLE 2 MG PO SCH (08:54)
[2020-12-25] MEDS: GABAPENTIN 300 MG CAP PO SCH ×3 (08:55→20:17)
[2020-12-25] MEDS: PROPRANOLOL HCL 60 MG SA CAP PO SCH (08:55)
[2020-12-25] MEDS: DULOXETINE 30 MG CAP PO SCH (08:55)
[2020-12-25] MEDS: FLUTICASONE PROPIONATE 50 MCG IH SCH (08:55)
[2020-12-25] MEDS: JUVEN PACKET PO SCH ×2 (08:56→20:18)
[2020-12-25] MEDS: PERMETHRIN 5% 60 GM TUBE TOP SCH (08:56)
[2020-12-25] MEDS: BALSALAZIDE 750 MG PO SCH (17:29)
[2020-12-25] MEDS: ENOXAPARIN 40 MG/0.4 ML SQ SCH (17:29)
[2020-12-25] MEDS: TAMSULOSIN 0.4 MG SR CAP PO SCH (20:17)
--- NOTE | 2020-12-25 21:24 | P.PN ---
Subjective Date of Service: 12/25/20 Chief Complaint: BROKE L HIP Subjective: Improving I SAW HER IN AM. SHE IS STABLE. SHE IS GOING FOR SURGERY TODAY AFTER 5 PM. SHE HAD SURGERY YESTERDAY. STABLE SO FAR. STABLE. WAITING FOR REHAB APPROVAL. FEELS BETTER , NO CHANGES. CLARIFIED [facility]. [place] LEG PAIN. CHRONIC. MR OLIVIER NEEDS NH OR PT ANYWHERE SHE IS DISABLED FROM MS AND THEN ON TOP OF THAT SHE HAS BROKEN HIP ON L SIDE. SHE IS STABLE BUT WEAK AND UNSTEADY. Physical Examination - Vital Signs Temperature: 97.5 F Blood Pressure: 104/48 Pulse: 67 Respirations: 16 Pulse Ox (%): 97 - Physical Exam General: Mild distress HEENT: Atraumatic, PERRLA, EOMI Neck: Supple, JVD not distended Respiratory: Clear to auscultation bilaterally, Normal air movement Cardiovascular: Regular rate/rhythm, Normal S1 S2 Gastrointestinal: Normal bowel sounds, No tenderness Musculoskeletal: No tenderness Integumentary: No rashes Neurological: Normal speech, Normal tone, Normal affect Lymphatics: No axilla or inguinal lymphadenopathy - Studies Medications List Reviewed: Yes Assessment And Plan - Current Problems (Diagnosis) (1) Hip fracture, left Current Visit: Yes Status: Acute Plan: MEDICALLY CLEARED WITH MILD TO MODERATE RISK OF SURGERY AND RECOVERY. SHE WILL BE SENT TO REHAB FACILITY AFTER SURGERY. SURGERY TODAY. PT CONSULT REHAB CONSULT. ANTICOAGULATION. WE ARE WAITING FOR ANSWER FROM INSURANCE COMPANY ABOUT REHAB. Qualifiers: Encounter type: initial encounter Fracture type: closed Qualified Code(s): S72.002A - Fracture of unspecified part of neck of left femur, initial encounter for closed fracture (2) Multiple sclerosis Current Visit: Yes Status: Chronic Plan: STABLE DOES NOT SEEM TO PROGRESS FAST. START GABAENTI FOR NERVE PAIN. Physician Review Additional Text: Physical exam: Patient alert, cooperative. No complaints noted Heart: Regular rate rhythm Lungs: Clear to auscultation Abdomen: Soft nontender nondistended Extremities: Good range of motion. No focal deficits. Postoperative changes noted to the left hip Impression: Fall with left femoral neck fracture status post left bipolar hemiarthroplasty Hypertension Hypothyroidism History of colitis Depression with anxiety Postoperative anemia Asthma Plan: Fall with left femoral neck fracture status post left bipolar hemiarthroplasty: Patient doing well. Pain well controlled. Continue DVT prophylaxis. I am covering for Dr. Muniz. Patient doing well with physical therapy. Patient participating. Continue with physical therapy recommendation. Patient was denied inpatient rehab. Patient now pursuing skilled placement. Await approval. Anticipate approval likely tomorrow. PCP/attending Dr. Muniz will take over tomorrow. I will go over plan of care with him. Hypertension: Continue propanolol. Losartan has been held due to adequate control with propanolol. Hypothyroidism: Continue medication History of ulcerative colitis: Continue home medication. Stool softener was added. Depression with anxiety: Continue medication including Cymbalta and Abilify. Chronic pain with history of fibromyalgia: Continue medications. Postoperative anemia: Overall stable. Will monitor closely. Asthma: Continue with her medications
[2020-12-26] MEDS: LEVOTHYROXINE SOD 0.075 MG TAB PO SCH (05:51)
[2020-12-26 07:31] LABS: Absolute Lymphocytes (CBC) 1.2 K/uL (0.7-4.9); Basophils % 1.4 % (0-1.3); Hematocrit 32.2 % (36.0-45.0); MPV 7.6 fL (7.6-11.3); RBC Red Blood Cell Count 3.27 M/uL (3.86-4.86)
[2020-12-26 07:39] LABS: Potassium 3.9 mmol/L (3.5-5.1)
[2020-12-26] MEDS: GABAPENTIN 300 MG CAP PO SCH ×3 (08:27→20:07)
[2020-12-26] MEDS: PROPRANOLOL HCL 60 MG SA CAP PO SCH (08:27)
[2020-12-26] MEDS: DULOXETINE 30 MG CAP PO SCH (08:27)
[2020-12-26] MEDS: ARIPIPRAZOLE 2 MG PO SCH (08:28)
[2020-12-26] MEDS: PERMETHRIN 5% 60 GM TUBE TOP SCH (08:28)
[2020-12-26] MEDS: FLUTICASONE PROPIONATE 50 MCG IH SCH (08:28)
[2020-12-26] MEDS: BALSALAZIDE 750 MG PO SCH ×3 (08:28→16:10)
[2020-12-26] MEDS: JUVEN PACKET PO SCH ×2 (08:29→20:07)
[2020-12-26] MEDS: TRAMADOL HCL 50 MG TAB PO PRN ×2 (08:30→21:27)
[2020-12-26] MEDS: ENOXAPARIN 40 MG/0.4 ML SQ SCH (16:09)
[2020-12-26] MEDS: TAMSULOSIN 0.4 MG SR CAP PO SCH (20:07)
--- NOTE | 2020-12-26 22:03 | PN ---
Subjective: Ms. Leone is doing better. Denies any chest pain, nausea, vomiting. She is trying to do physical therapy. We are still waiting for insurance company to approve for group home for the yamilka. Objective: Vital Signs: Blood pressure 114/62, temperature 97.6. HEENT: No JVD. No carotid bruits. Chest: Clear. Heart: Regular. Neurological: She has MS, which has generally she made her weak. She walks with a walker. Assessment And Plan: 1.Hip fracture on left side. Continue OT and PT. Waiting for placement. 2.Multiple sclerosis. Continue current medications. She has a stable MS so far. RVD/MODL Voice ID: [id number] Report ID: [id number]
[2020-12-26 23:11] VITALS: O2SAT 97
[2020-12-27] MEDS: LEVOTHYROXINE SOD 0.075 MG TAB PO SCH (05:26)
[2020-12-27] MEDS: BALSALAZIDE 750 MG PO SCH ×3 (07:30→16:48)
[2020-12-27] MEDS: ARIPIPRAZOLE 2 MG PO SCH (09:00)
[2020-12-27] MEDS: PERMETHRIN 5% 60 GM TUBE TOP SCH (09:00)
[2020-12-27] MEDS: FLUTICASONE PROPIONATE 50 MCG IH SCH (09:00)
[2020-12-27] MEDS: DULOXETINE 30 MG CAP PO SCH (10:15)
[2020-12-27] MEDS: GABAPENTIN 300 MG CAP PO SCH ×2 (10:15→14:28)
[2020-12-27] MEDS: PROPRANOLOL HCL 60 MG SA CAP PO SCH (10:16)
[2020-12-27] MEDS: JUVEN PACKET PO SCH (10:17)
[2020-12-27] MEDS: TRAMADOL HCL 50 MG TAB PO PRN (10:19)
[2020-12-27 12:10] VITALS: BP 116/58; TEMP 97
[2020-12-27] MEDS: ENOXAPARIN 40 MG/0.4 ML SQ SCH (16:48)
--- NOTE | 2020-12-27 22:00 | P.DS ---
Admission Date: 12/12/20 Discharge Date: 12/27/20 Disposition: TRANSFER TO CORRECTION Discharge Condition: FAIR Reason for Admission: BROKE L HIP - Problems (1) Hip fracture, left Status: Acute Qualifiers: Encounter type: initial encounter Fracture type: closed Qualified Code(s): S72.002A - Fracture of unspecified part of neck of left femur, initial encounter for closed fracture (2) Multiple sclerosis Status: Chronic Brief History of Present Illness: JOHN AT NIGHT FELL OVER THE DOOR KEPT FOR DOG TO BE IN PLACE AND BROKE L HIP. SHE HAS MS AND HAS LIMITED MOBILITY FROM IT. Hospital Course: JOHN HAS L HIP FRACTURE. INSURANCE COMPANY REJECTED THE [facility] ADMISSION. IT TOOK THEM 10 DAYS TO APPROVE NH FACILITIY. IT IS UNFAIR FOR [employer]CE COMPANIES TO INTENTIONALLY DELAY THE DISCHARGE FOR PATIENTS HOSPITAL AND PATIENTS END UP SUFFERING BECAUSE OF THEIR TACTIC. Vital Signs/Physical Exam: Temp Pulse Resp BP Pulse Ox 97 F 94 H 18 116/58 L 94 12/27/20 12:00 12/27/20 12:00 12/27/20 12:00 12/27/20 12:00 12/27/20 12:00 Laboratory Data at Discharge: WBC 5.80 K/uL (4.3-10.9) D 12/26/20 07:00 Hgb 11.0 g/dL (12.0-15.0) L 12/26/20 07:00 Hct 32.2 % (36.0-45.0) L 12/26/20 07:00 Plt Count 320 K/uL (152-406) D 12/26/20 07:00 PT 12.6 SECONDS (9.5-12.5) H 12/12/20 08:24 INR 1.09 12/12/20 08:24 APTT 26.5 SECONDS (24.3-36.9) 12/12/20 08:24 Sodium 142 mmol/L (136-145) 12/26/20 07:00 Potassium 3.9 mmol/L (3.5-5.1) 12/26/20 07:00 BUN 12 mg/dL (7-18) 12/26/20 07:00 Creatinine 0.65 mg/dL (0.55-1.3) 12/26/20 07:00 Glucose 147 mg/dL (74-106) H 12/26/20 07:00 Magnesium 2.0 mg/dL (1.8-2.4) 12/17/20 09:01 Home Medications: Duloxetine HCl [Cymbalta] 60 mg PO DAILY 05/14/16 Fluticasone Propionate [Flovent Diskus] 50 mcg IH DAILY 05/14/16 Levothyroxine [Synthroid*] 75 mcg PO [id number] 05/14/16 Propranolol HCl [Propranolol HCl ER] 60 mg PO DAILY 05/14/16 Gabapentin [Neurontin*] 200 mg PO SEECOM 04/18/17 Aripiprazole [Abilify] 2 mg PO DAILY 12/15/20 Balsalazide Disodium 1 cap PO TID 12/15/20 Gabapentin 160 mg PO BID 12/15/20 Losartan Potassium 50 mg PO DAILY 12/15/20 Mirabegron [Myrbetriq] 50 mg PO DAILY 12/15/20 Enoxaparin Sodium [Lovenox 40 MG INJ*] 40 mg SQ DAILY 5 PM syr 12/27/20 traMADol HCL [Ultram*] 50 mg PO Q6H PRN tab 12/27/20 Followup: Asa Muniz MD [Primary Care Provider] -
== END 2020-12-27 16:58 | DRG 522 ==
LOC: ER 06:07 → ERHOLD 09:35 → 2ND 15:30
PROVIDERS: ADMIT Internal Medicine; ATTEND Internal Medicine
PROC: 0SRS0J9 Replacement of Left Hip Joint, Femoral Surface with Synthetic Substitute, Cemented, Open Approach (ICD-10-PCS; principal; 2020-12-13 16:30)
DX: S72.002A Fracture of unspecified part of neck of left femur, initial encounter for closed fracture (principal); G35 Multiple sclerosis; J45.909 Unspecified asthma, uncomplicated; F41.8 Other specified anxiety disorders; D64.9 Anemia, unspecified; E03.9 Hypothyroidism, unspecified; I10 Essential (primary) hypertension; G89.29 Other chronic pain; W18.30XA Fall on same level, unspecified, initial encounter; Z88.8 Allergy status to other drugs, medicaments and biological substances; Z79.890 Hormone replacement therapy; Z79.899 Other long term (current) drug therapy; Z20.822 Contact with and (suspected) exposure to COVID-19
CPT/HCPCS: 36415; 51702; 70450; 71045; 72125; 72170; 80048; 81003; 82947; 83735; 85025; 85049; 85610; 85730; 86850; 86900; 86901; 88305; 88311; 93005; 96374; 96375; 97110; 97112; 97116; 97161; 97530; 99285; J0690; J1100; J1650; J2250; J2270; J2370; J2405; J2704; J2710; J3010; J7120; U0003

== ENCOUNTER 2021-07-14 08:26 | Emergency (ER) | payer OTHER ==
[2021-07-14 09:23] LABS: Absolute Lymphocytes (CBC) 1.3 K/uL (0.7-4.9); Basophils % 1.9 % (0-1.3); Hematocrit 40.6 % (36.0-45.0); Lymphocytes % 25.1 % (15.3-44.8); MPV 7.2 fL (7.6-11.3); RBC Red Blood Cell Count 4.28 M/uL (3.86-4.86)
[2021-07-14 09:35] LABS: Protime INR 1.02
[2021-07-14 09:38] LABS: Potassium 3.5 mmol/L (3.5-5.1)
--- NOTE | 2021-07-14 10:48 | RAD REPORT ---
EXAM DESCRIPTION: CT - Chest Abdomen Pelvis W Cont - 07/14/2021 9:41 am CLINICAL HISTORY: left chest and abd injury, fall COMPARISON: Head C Spine Mpr Wo Con dated 12/12/2020; Abdomen Pelvis W Contrast dated 04/18/2017; Ch est Pa And Lat (2 Views) dated 01/29/2016 TECHNIQUE: Following dynamic enhancement using 100 milliliters nonionic IV contrast, axial imaging o f the chest, abdomen and pelvis was performed. Biphasic technique was utilized through the abdomen. No oral contrast administered. All CT scans are performed using dose optimization technique as appropriate and may include automated exposure control or mA/KV adjustment according to patient size. FINDINGS: No pulmonary contusion or acute lung parenchymal process seen. Scarring and atelectasis ch anges are present. Calcified pleural plaquing present with no pleural based mass. No pleural effusion , pleural thickening or pneumothorax. No significant aortic or pulmonary arterial tree finding. Media stinal and hilar regions show no mass or abnormal lymphadenopathy. No displaced or nondisplaced rib f ractures identifiable. Postsurgical changes are present to the right chest and right axilla. There is an 8 centimeter sessile remnant of soft tissue along the anterolateral right chest wall in the subcu taneous fatty tissues. Little breast tissue is identifiable. Patient may be status post bilateral mas tectomy. There is a tubular shaped focus of soft tissue that continues from the chest wall mass into the right axilla. This is all believed to be chronic and was partially imaged on the 2017 CT abdomen study. The liver, spleen and pancreas show no suspicious findings. Cholecystectomy clips are present. No abn ormal biliary tree dilatation. Symmetric renal function is seen with no mass or hydronephrosis. No ad renal abnormalities. Contracted urinary bladder shows no suspicious findings. Atrophic uterus is pres ent. No ovarian suspicious finding. No dilated bowel loops or focal bowel wall thickening. No acute GI findings seen. Diverticulosis is m ild. No free air, free fluid or inflammatory stranding. No mass or bulky lymphadenopathy. Small fat o nly umbilical hernia is present with no acute component. Disc and bone degenerative changes are present. Left hip prosthesis in place creating spray artifact along the pelvic floor. T11 and L2 partial compression fractures 8 back to at least 2017. Lumbosacral transition body is present. Anterior subluxation of L4 is stable as well. No significant vascular findings. IMPRESSION: No rib fracture, pneumothorax or other acute CT chest trauma finding. No acute traumatic injury to the abdomen or pelvis. Nonacute findings including vertebral compression fractures and right chest soft tissue findings, det nestor in the body of the report, are stable from prior imaging.
--- NOTE | 2021-07-14 11:18 | EDPHYS ---
Physician Documentation [facility] Name: Gabriella Leone Age: 70 yrs Sex: Female : 1950 Arrival Date: 07/14/2021 Time: 08:29 Bed 14 Private MD: Asa Muniz V ED Physician James Jose HPI: 07/14 08:38 This 70 yrs old Female presents to ER via Unassigned with complaints of Fall rn Injury. 08:38 Details of fall: The patient fell from an upright position, while walking. Onset: The rn symptoms/episode began/occurred 2 day(s) ago. Associated injuries: The patient sustained injury to the chest, contusion, ecchymosis, injury to the abdomen, contusion, ecchymosis. Severity of symptoms: At their worst the symptoms were moderate, in the emergency department the symptoms are unchanged. The patient has experienced similar episodes in the past. The patient has not recently seen a physician. Patient reports fall 2 days ago, falls frequently due to MS. Reports tripped over walker and wheel of walker hit left side of body namely the chest and abdomen. Reports bruising and tenderness. Not improving. Came in for evaluation. Denies any pain to the back neck head or hips. Historical: - Allergies: 08:43 Aspirin; ss - PMHx: 08:43 Depression; Multiple Sclerosis; Hypertension; throid disease; ulcerative colitis; ss - Immunization history:: Adult Immunizations up to date. - Immunization history: Last tetanus immunization: - up to date. - Family history:: not pertinent. - Social history:: Smoking status: Patient denies any tobacco usage or history of. - Hospitalizations: : No recent hospitalization is reported. ROS: 08:38 Constitutional: Negative for fever, chills, and weight loss, Eyes: Negative for injury, rn pain, redness, and discharge, Neck: Negative for injury, pain, and swelling, Cardiovascular: Positive for left-sided rib pain Respiratory: Negative for shortness of breath, cough, wheezing Abdomen/GI: Positive for left-sided abdominal pain Back: Negative for injury and pain, : Negative for injury, bleeding, discharge, and swelling, MS/Extremity: Negative for injury and deformity, Skin: Negative for injury, rash, and discoloration, Neuro: Negative for headache, weakness, numbness, tingling, and seizure. Exam: 08:38 Constitutional: This is a well developed, well nourished patient who is awake, alert, rn and in no acute distress. Ambulatory to room with walker Head/Face: Normocephalic, atraumatic. Neck: Trachea midline, no vertebral point tenderness. Chest/axilla: Normal chest wall appearance and motion. Nontender with no deformity. No lesions are appreciated. Cardiovascular: Regular rate and rhythm. No pulse deficits. Respiratory: No increased work of breathing, no retractions or nasal flaring. Abdomen/GI: Soft, mild left upper quadrant and left lower quadrant tenderness with lateral abdominal wall ecchymosis. No peritoneal signs Skin: Warm, dry MS/ Extremity: Pulses equal, no cyanosis. Neurovascular intact. Full, normal range of motion. Equal circumference. Neuro: Awake and alert, GCS 15, oriented to person, place, time, and situation. Cranial nerves II-XII grossly intact. Motor strength 5/5 in all extremities. Sensory grossly intact. Cerebellar exam normal. Normal gait. Vital Signs: 08:40 BP 161 / 85; Pulse 74; Resp 17; Temp 97.6(O); Pulse Ox 100% on R/A; Weight 81.19 kg; ss Height 5 ft. 6 in. (167.64 cm); Pain 5/10; 10:58 BP 174 / 87; Pulse 62; Resp 17; Pulse Ox 95% ; ll1 12:11 BP 150 / 99; Pulse 66; Resp 15; Pulse Ox 100% ; ll1 08:40 Body Mass Index 28.89 (81.19 kg, 167.64 cm) Mika Coma Score: 08:40 Eye Response: spontaneous(4). Verbal Response: oriented(5). Motor Response: obeys ss commands(6). Total: 15. Trauma Score (Adult): 08:40 Eye Response: spontaneous(1); Verbal Response: oriented(1); Motor Response: obeys ss commands(2); Systolic BP: > 89 mm Hg(4); Respiratory Rate: 10 to 29 per min(4); Mika Score: 15; Trauma Score: 12 MDM: 08:29 Patient medically screened. rn 11:16 Differential diagnosis: contusion, fracture, sprain, strain. Differential diagnosis: rn Intraperitoneal injury. Data reviewed: vital signs, nurses notes, lab test result(s), radiologic studies. Counseling: I had a detailed discussion with the patient and/or guardian regarding: the historical points, exam findings, and any diagnostic results supporting the discharge/admit diagnosis, lab results, radiology results, the need for outpatient follow up, to return to the emergency department if symptoms worsen or persist or if there are any questions or concerns that arise at home. Response to treatment: the patient's symptoms have mildly improved after treatment, and as a result, I will discharge patient. Special discussion: Based on the patient's history, exam, and Dx evaluation, there is no indication for emergent intervention or inpatient Tx. It is understood by the patient/guardian that if the Sx's persist or worsen they need to return immediately for re-evaluation. Based on the patient's Hx, exam, and Dx evaluation, there is no indication for emergent surgery or inpatient Tx. It is understood by the patient/guardian that if the Sx's persist or worsen they need to return immediately for re-evaluation. I discussed with the patient/guardian in detail that at this point there is no indication for admission to the hospital. It is understood, however, that if the symptoms persist or worsen the patient needs to return immediately for re-evaluation. ED course: No acute findings and CT chest abdomen pelvis. No fractures or intraperitoneal bleeding. Will DC home with return precautions.. 07/14 08:38 Order name: CBC with Diff; Complete Time: 10:46 rn 07/14 08:38 Order name: Basic Metabolic Panel; Complete Time: 10:46 rn 07/14 08:38 Order name: IV Start; Complete Time: 08:42 rn 07/14 08:38 Order name: Protime (+inr); Complete Time: 10:46 rn 07/14 08:38 Order name: Ptt, Activated; Complete Time: 10:46 rn 07/14 08:38 Order name: CT Chest, Abdomen, Pelvis - W/Contrast; Complete Time: 10:48 rn Administered Medications: No medications were administered Disposition Summary: 07/14/21 11:18 Discharge Ordered Location: Home rn Problem: new rn Symptoms: have improved rn Condition: Stable rn Diagnosis - Contusion of left front wall of thorax, initial encounter rn - Contusion of abdominal wall, initial encounter rn Followup: rn - With: Private Physician - When: As needed - Reason: Recheck today's complaints, Re-evaluation by your physician Discharge Instructions: - Discharge Summary Sheet rn - Contusion rn - Blunt Chest Trauma rn Forms: - Medication Reconciliation Form rn - Thank You Letter rn - Antibiotic rn review - Prescription Opioid Use rn Signatures: Dispatcher [employer] EDJames Wilkins MD MD rn Smirch, Shelby, RN RN Madeline Harris RN RN ll1
--- NOTE | 2021-07-14 11:18 | ER ---
Nurse's Notes [facility] Name: Gabriella Leone Age: 70 yrs Sex: Female : 1950 Arrival Date: 07/14/2021 Time: 08:29 Bed 14 Private MD: Asa Muniz V Diagnosis: Contusion of left front wall of thorax, initial encounter;Contusion of abdominal wall, initial encounter Presentation: 07/14 08:40 Chief complaint: Patient states: L lateral chest wall pain that began 1 week ago after ss falling from a standing position. Care prior to arrival: None. Mechanism of Injury: Fall from standing position. Trauma event details: Injury occurred: July 05, 2021. 08:40 Acuity: QUANG 3 ss 08:40 Method Of Arrival: Ambulatory ss 08:42 Coronavirus screen: Client denies travel out of the [place] in the last 14 days. Ebola ss Screen: Patient denies exposure to infectious person. Patient denies travel to an Ebola-affected area in the 21 days before illness onset. Initial Sepsis Screen: Does the patient meet any 2 criteria? No. Patient's initial sepsis screen is negative. Does the patient have a suspected source of infection? No. Patient's initial sepsis screen is negative. Risk Assessment: Do you want to hurt yourself or someone else? Patient reports no desire to harm self or others. Onset of symptoms was July 05, 2021. Trauma Activation: Not Applicable Physician: ED Physician; Name: ; Notified At: ; Arrived At: Physician: General Surgeon; Name: ; Notified At: ; Arrived At: Physician: Radiology; Name: ; Notified At: ; Arrived At: Physician: Respiratory; Name: ; Notified At: ; Arrived At: Physician: Lab; Name: ; Notified At: ; Arrived At: Historical: - Allergies: 08:43 Aspirin; ss - PMHx: 08:43 Depression; Multiple Sclerosis; Hypertension; throid disease; ulcerative colitis; ss - Immunization history:: Adult Immunizations up to date. - Immunization history: Last tetanus immunization: - up to date. - Family history:: not pertinent. - Social history:: Smoking status: Patient denies any tobacco usage or history of. - Hospitalizations: : No recent hospitalization is reported. Screenin:40 Abuse screen: Denies threats or abuse. Denies injuries from another. Tuberculosis ss screening: Never had TB. 12:12 Nutritional screening: No deficits noted. Fall Risk Fall in past 12 months (25 points). ll1 IV access (20 points). Gait- Weak (10 pts.). Total Hopper Fall Scale indicates High Risk Score (45 or more points). Fall prevention measures have been instituted. Side Rails Up X 2 Frequent Obs/Assessments Occuring As available patient and family educated on Fall Prevention Program and Strategies. Primary Survey: 08:40 NO uncontrolled hemorrhage observed. A: The patient is alert. Airway: patent, No ss supplemental oxygen in use on arrival. Oral cavity: clear, Trachea midline. Breathing/Chest: Respiratory pattern: regular, Respiratory effort: spontaneous, unlabored, Breath sounds: clear, bilaterally. Chest inspection: symmetrical rise and fall of the chest. Circulation: Pulses: palpable right radial artery, right posterior tibial artery, left radial artery and left posterior tibial artery. Disability Alert. Exposure/Environment: There is no evidence of uncontrolled external bleeding. 12:12 Reassessment Breathing/Chest. ll1 Assessment: 08:50 General: Appears in no apparent distress. Behavior is calm, cooperative, appropriate ll1 for age. Pain: Complains of pain in L side of rib cage Quality of pain is described as aching. Musculoskeletal: Circulation, motion, and sensation intact. Capillary refill < 3 seconds, Range of motion: intact in all extremities, Tenderness present in L ribs. Injury Description: s/p fall 1 week ago. 09:50 Reassessment: No changes from previously documented assessment. Patient and/or family ll1 updated on plan of care and expected duration. Pain level reassessed. Patient is alert, oriented x 3, equal unlabored respirations, skin warm/dry/pink. 10:50 Reassessment: No changes from previously documented assessment. Patient and/or family ll1 updated on plan of care and expected duration. Pain level reassessed. Patient is alert, oriented x 3, equal unlabored respirations, skin warm/dry/pink. 11:50 Reassessment: No changes from previously documented assessment. Patient and/or family ll1 updated on plan of care and expected duration. Pain level reassessed. Patient is alert, oriented x 3, equal unlabored respirations, skin warm/dry/pink. Vital Signs: 08:40 BP 161 / 85; Pulse 74; Resp 17; Temp 97.6(O); Pulse Ox 100% on R/A; Weight 81.19 kg; ss Height 5 ft. 6 in. (167.64 cm); Pain 5/10; 10:58 BP 174 / 87; Pulse 62; Resp 17; Pulse Ox 95% ; ll1 12:11 BP 150 / 99; Pulse 66; Resp 15; Pulse Ox 100% ; ll1 08:40 Body Mass Index 28.89 (81.19 kg, 167.64 cm) Westfield Coma Score: 08:40 Eye Response: spontaneous(4). Verbal Response: oriented(5). Motor Response: obeys ss commands(6). Total: 15. Trauma Score (Adult): 08:40 Eye Response: spontaneous(1); Verbal Response: oriented(1); Motor Response: obeys ss commands(2); Systolic BP: > 89 mm Hg(4); Respiratory Rate: 10 to 29 per min(4); Westfield Score: 15; Trauma Score: 12 ED Course: 08:29 Patient arrived in ED. mr 08:29 Asa Muniz MD is Private Physician. mr 08:29 James Jose MD is Attending Physician. rn 08:40 Patient has correct armband on for positive identification. Bed in low position. Call ss light in reach. 08:40 Patient maintains SpO2 saturation greater than 95% on room air. ss 08:41 Triage completed. ss 08:42 Madeline Hopkins, MORA is Primary Nurse. ll1 08:50 Inserted saline lock: 22 gauge in left antecubital area, using aseptic technique. Blood ll1 collected. 09:41 CT Chest, Abdomen, Pelvis - W/Contrast In Process Unspecified. EDMS 10:59 Thermoregulation: warm blanket given to patient. ll1 12:12 No provider procedures requiring assistance completed. IV discontinued, intact, ll1 bleeding controlled, No redness/swelling at site. Pressure dressing applied. 12:13 Patient n/a. ll1 Administered Medications: No medications were administered Intake: 12:13 PO: 0ml; Total: 0ml. ll1 Output: 12:13 Urine: 0ml; Total: 0ml. ll1 Outcome: 11:18 Discharge ordered by MD. rn 12:12 Discharged to home ambulatory. ll1 12:12 Condition: stable 12:12 Discharge instructions given to patient, Instructed on discharge instructions, follow up and referral plans. Demonstrated understanding of instructions, follow-up care. 12:13 Patient's length of stay was not longer than 2 hours. ll1 12:14 Patient left the ED. ll1 Signatures: Dispatcher [employer] KIARRA ZafarTanya mr JoseJames MD MD rn Smirch, Shelby, RN RN ss Lewis, Lynsay, RN RN 1
[2021-07-14 12:18] VITALS: TEMP 97.6
[2021-07-14 12:21] VITALS: BP 150/99; O2SAT 100
== END 2021-07-14 12:14 | disposition home or self-care (01) ==
LOC: ER 08:26
DX: S20.212A Contusion of left front wall of thorax, initial encounter (principal); S30.1XXA Contusion of abdominal wall, initial encounter; W01.198A Fall on same level from slipping, tripping and stumbling with subsequent striking against other object, initial encounter; Y93.01 Activity, walking, marching and hiking; I10 Essential (primary) hypertension; Z88.6 Allergy status to analgesic agent
CPT/HCPCS: 85025; 80048; 36415; 85610; 82565; 85730; 71260; 74177; 99284; Q9967

== ENCOUNTER 2023-08-28 09:46 | Emergency (ER) | payer OTHER ==
--- OUTSIDE RECORDS SUMMARY | 2023-08-28 09:48 | XMS REPORT | Continuity of Care Document ---
:1950 Author Organization [facility] t Address [address] [place] [address] [place] [id number] Care Team Providers Name Role Phone [email or web address] Attending Clinician Unavailable Radiology Attending Clinician Unavailable Doctor Unassigned, Redbird Smith Attending Clinician Unavailable [email or web address] Admitting Clinician Unavailable Problems This patient has no known problems. Allergies, Adverse Reactions, Alerts This patient has no known allergies or adverse reactions. Medications This patient has no known medications. Procedures This patient has no known procedures. Encounters Start End Encounter Admission Attending Care Care Encounter Source Date/Time Date/Time Type Type Clinicians Facility Department ID 2022-01-06 Outpatient [facility] [id number] [facility] 09:30:06 [id number] [facility] 2023-08-04 2023-08-04 Outpatient [email or web address] PRIV PRIV [id number] [facility] 00:00:00 00:00:00 diyala_S [id number] Medic al 2023-08-03 2023-08-03 Outpatient [email or web address] PRIV PRIV [id number] [facility] 00:00:00 00:00:00 diyala_S [id number] Medic al 2019-04-28 2019-04-28 [facility] Radiology [facility] [id number] 14:41:07 23:59:00 Encounter Agustín [id number] Lisa [id number] [place] [id number] 2019-04-28 2019-04-28 Orders Doctor GONCALVES [id number] 00:00:00 00:00:00 Only Unassigned, CLIFFORD [id number] Redbird Smith [facility] [id number] Results This patient has no known results.
[2023-08-28 10:32] LABS: Absolute Lymphocytes (CBC) 0.7 K/uL (0.7-4.9); Hematocrit 39.9 % (36.0-45.0); Lymphocytes % 12.1 % (15.3-44.8); MCV 95.3 fL (80-100); MPV 7.5 fL (7.6-11.3); Platelets 151 thou/uL (152-406); RBC Red Blood Cell Count 4.18 M/uL (3.86-4.86)
--- NOTE | 2023-08-28 11:16 | RAD REPORT ---
EXAM DESCRIPTION: CT - Head C Spine Cap Wo Con - 08/28/2023 10:28 am CLINICAL HISTORY: Head and neck injury with chest and abdominal pain status post fall TECHNIQUE: Computed axial tomography of head, neck, chest, abdomen and pelvis obtained. IV and oral contrast not requested. Coronal and sagittal reconstruction performed. All CT scans are performed using dose optimization technique as appropriate and may include automated exposure control or mA/KV adjustment according to patient size. COMPARISON: 2020 FINDINGS: An intracranial bleed is not seen. The ventricles are normal in caliber. An extra-axial fluid collection is not noted. Moderate to marked low-density areas periventricular, deep and subcortical white matter likely ischem ic changes secondary to small vessel disease. 7 millimeter low-density area within the right thalamus consistent with lacunar infarct. It has devel oped since 2020. Small low-density areas right and left cerebellum have also developed since prior ex am compatible with infarcts. Fluid is not seen within sinuses/mastoids A cervical fracture is not seen. No dislocation is noted. Mild posterior subluxation C5 on C6. Mild a nterior subluxation C7 on T1. Both are chronic. Spondylosis cervical spine The evaluation of mediastinum, humberto, vessels, solid organs and bowel are limited secondary to the lac k of contrast administration. A mediastinal hematoma is not noted. A pleural effusion is not seen. A lung contusion is not present. The liver,spleen, pancreas, adrenals,kidneys and bladder do not demonstrate an acute traumatic injury Acute/subacute fracture L1 vertebral body results in approximately 35% compression. Minimal retropuls ion of bone into the spinal canal. This has developed since 2020 Bold compression fractures T11 and L2 vertebral bodies. Mild chronic anterior subluxation L4 on L5 Left hip arthroplasty Small right adrenal adenoma. Small to moderate umbilical hernia IMPRESSION: No acute intracranial abnormality is seen. A cervical fracture is not visualized. If the patient continues to have symptoms to suggest intracran ial/spinal cord pathology MRI be recommended No acute traumatic abnormality involving the chest. Acute/subacute fracture L1 vertebral body results in approximately 35% compression. Minimal retropuls ion of bone into the spinal canal.
--- NOTE | 2023-08-28 11:45 | EDPHYS ---
Physician Documentation [facility] Name: Gabriella Leone Age: 73 yrs Sex: Female : 1950 Arrival Date: 08/28/2023 Time: 09:46 Bed 19 Private MD: ED Physician Aric Lazar HPI: 08/28 10:10 This 73 yrs old Female presents to ER via Ambulatory with complaints of Fall Injury, cp Back Pain. 10:10 Details of fall: The patient fell from an upright position, while walking, and struck a cp tile surface. Onset: The symptoms/episode began/occurred 2 day(s) ago. 10:10 Associated injuries: The patient sustained injury to the head, pain, mid and low back cp pain. Patient is a 73-year-old female with past medical history significant for multiple sclerosis, hypertension, ulcerative colitis who presents to the emergency department after reported fall 2 days ago. Patient reports she was using her walker when she lost her balance, fell and landed on her side. She denies loss of consciousness but did reportedly strike her head. She presents with complaints of head pain and back pain. Historical: - Allergies: 09:51 Aspirin; ll1 - PMHx: 09:51 Hypertension; Depression; Multiple Sclerosis; throid disease; ulcerative colitis; ll1 - Immunization history:: Adult Immunizations up to date. - Social history:: Smoking status: Patient denies any tobacco usage or history of. ROS: 10:15 Constitutional: Negative for body aches, chills, fever, poor PO intake, cp 10:15 Eyes: Negative for injury, pain, redness, and discharge, cp 10:15 ENT: Negative for drainage from ear(s), ear pain, sore throat, difficulty swallowing, difficulty handling secretions, 10:15 Cardiovascular: Negative for chest pain, edema, palpitations, 10:15 Respiratory: Negative for cough, shortness of breath, wheezing, 10:15 Abdomen/GI: Negative for abdominal pain, nausea, vomiting, and diarrhea, 10:15 Back: Positive for pain at rest, pain with movement, 10:15 Neuro: Positive for headache, Negative for altered mental status, 10:15 All other systems are negative, Exam: 10:20 Constitutional: The patient appears in no acute distress, alert, awake, cp non-diaphoretic, non-toxic, well developed, well nourished, uncomfortable, 10:20 Head/Face: Normocephalic, atraumatic. cp 10:20 Eyes: Periorbital structures: appear normal, Pupils: equal, round, and reactive to light and accomodation, Extraocular movements: intact throughout, Conjunctiva: normal, no exudate, no injection, Sclera: no appreciated abnormality, Lids and lashes: appear normal, bilaterally, 10:20 ENT: External ear(s): are unremarkable, Nose: is normal, Mouth: Lips: moist, Oral mucosa: pink and intact, moist, Posterior pharynx: Airway: no evidence of obstruction, patent, 10:20 Neck: C-spine: C-collar placed in ED, vertebral tenderness, that is mild, appreciated at C4 and C5, crepitus, is not appreciated, 10:20 Chest/axilla: Inspection: normal, Palpation: crepitus, is not appreciated, tenderness, is not appreciated, 10:20 Cardiovascular: Rate: normal, 10:20 Respiratory: the patient does not display signs of respiratory distress, Respirations: normal, no use of accessory muscles, no retractions, labored breathing, is not present, Breath sounds: are clear throughout, no decreased breath sounds, no stridor, no wheezing, 10:20 Abdomen/GI: Inspection: abdomen appears normal, Palpation: abdomen is soft and non-tender, in all quadrants, 10:20 Back: pain, that is moderate, of the thoracic area and lumbar area, ROM is painful, with all movement, 10:20 Musculoskeletal/extremity: Extremities: all appear grossly normal, with no appreciated pain with palpation, 10:20 Neuro: Orientation: no acute changes, Mentation: no acute changes, Motor: moves all fours, no change, chronic weakness of legs, Sensation: no acute changes, Vital Signs: 09:55 BP 130 / 73; Pulse 69; Resp 18; Temp 98.2(O); Pulse Ox 95% on R/A; Weight 74.84 kg; eh3 Height 5 ft. 6 in. ; 10:56 BP 126 / 67; Pulse 63; Resp 16; Pulse Ox 92% on R/A; bc6 12:00 BP 143 / 78; Pulse 69; Resp 18; Pulse Ox 96% on R/A; eh3 13:00 BP 140 / 93; Pulse 69; Resp 18; Pulse Ox 96% on R/A; eh3 09:55 Body Mass Index 26.63 (74.84 kg, 167.64 cm) 3 MDM: 09:54 Patient medically screened. 11:30 Data reviewed: vital signs, nurses notes, lab test result(s), radiologic studies, CT cp scan, I have discussed the patient's presentation/case with the attending Emergency Department Physician; and as a result, I will transfer patient for MRI. 11:30 Differential diagnosis: closed head injury, contusion, fracture, multiple trauma. 12:00 I considered the following discharge prescriptions or medication management in the emergency department Medications were administered in the Emergency Department. See DEC. 14:00 ED course: patient accepted w/o doc to doc consult. 17:36 ED course: additional DX: L1 Vertebral Body Compression Fracture with Retropulsion. 08/28 10:04 Order name: Basic Metabolic Panel; Complete Time: 10:53 08/28 10:53 Interpretation: Normal except: K 3.0; GLUC 172; GFR 64. 08/28 10:04 Order name: CBC with Diff; Complete Time: 10:53 08/28 10:53 Interpretation: Normal except: PLT 151; MPV 7.5; JAYLENE% 81.0; LYM% 12.1. 08/28 10:04 Order name: Type And Screen; Complete Time: 11:17 08/28 10:04 Order name: Urinalysis w/ reflexes; Complete Time: 17:35 08/28 10:04 Order name: CT Traumagram (Head C Spine CAP wo con); Complete Time: 11:17 08/28 10:04 Order name: Labs collected and sent; Complete Time: 10:26 Administered Medications: 11:45 Drug: fentaNYL (PF) IVP 25 mcg IVP once Route: IVP; Site: left forearm; 3 12:30 Follow up: Response: No adverse reaction; Pain is decreased [facility] 13:32 Drug: morphine IVP or IV 4 mg IVP once over 4 mins Route: IVP; Infused Over: 4 mins; 3 Site: left forearm; 13:38 Follow up: Response: No adverse reaction; Medication administered at discharge. 3 Disposition Summary: 08/28/23 11:44 Transfer Ordered Notes: Transfer Location: [facility] cp Reason: Higher level of care cp Condition: Stable cp Problem: new cp Symptoms: have improved cp Accepting Physician: DR Rosales(08/28/23 13:39) eh3 Diagnosis - Fall on same level, unspecified cp Forms: - Medication Reconciliation Form cp - SBAR form cp Signatures: Dispatcher [employer] EDAdrien Marshall PA PA cp Lewis, Lynsay RN RN ll1 Madyson Munoz RN RN eh3 Corrections: (The following items were deleted from the chart) 11:51 11:44 Doctor cp cp 13:15 11:51 DR Rosales cp eh3 13:39 13:15 DR Rosales 3 eh3
--- NOTE | 2023-08-28 11:45 | ER ---
Nurse's Notes [facility] Name: Gabriella Leone Age: 73 yrs Sex: Female : 1950 Arrival Date: 08/28/2023 Time: 09:46 Bed 19 Private MD: Diagnosis: Fall on same level, unspecified Presentation: 08/28 09:55 Ebola Screen: Patient denies travel to an Ebola-affected area in the 21 days before [facility] illness onset. :55 Method Of Arrival: Ambulatory [facility] 09:55 Chief complaint: Patient states: Fell from standing backwards 2 days ago and hit back eh3 of head on tile floor, denies LOC, c/o left posterior rib pain and headache. Coronavirus screen: Vaccine status: Patient reports receiving the 2nd dose of the covid vaccine. Initial Sepsis Screen: Does the patient meet any 2 criteria? No. Patient's initial sepsis screen is negative. Does the patient have a suspected source of infection? No. Patient's initial sepsis screen is negative. Risk Assessment: Do you want to hurt yourself or someone else? Patient reports no desire to harm self or others. Onset of symptoms was August 26, 2023. 09:55 Acuity: QUANG 3 eh3 Triage Assessment: :55 General: Appears in no apparent distress. uncomfortable, Behavior is calm, cooperative, eh3 appropriate for age. Pain: Complains of pain in left subscapular area and left mid back. Neuro: Level of Consciousness is awake, alert, obeys commands, Oriented to person, place, time, situation, Speech is normal, Pupils are PERRLA, Reports headache Denies blurred vision. Cardiovascular: Capillary refill < 3 seconds Patient's skin is warm and dry. Respiratory: Airway is patent Respiratory effort is even, unlabored, Respiratory pattern is regular, symmetrical. GI: Abdomen is round non-distended. Derm: Skin is pink, warm \T\ dry. Musculoskeletal: Circulation, motion, and sensation intact. Historical: - Allergies: 09:51 Aspirin; ll1 - PMHx: 09:51 Hypertension; Depression; Multiple Sclerosis; throid disease; ulcerative colitis; ll1 - Immunization history:: Adult Immunizations up to date. - Social history:: Smoking status: Patient denies any tobacco usage or history of. Screenin:55 [facility] ED Fall Risk Assessment (Adult) Score/Fall Risk Level 0 - 2 = Low Risk. Abuse 3 screen: Denies threats or abuse. Denies injuries from another. Nutritional screening: No deficits noted. Tuberculosis screening: No symptoms or risk factors identified. Assessment: 09:55 Reassessment: No changes from previously documented assessment. See triage assessment. 3 11:00 Reassessment: Patient appears in no apparent distress at this time. Patient and/or 3 family updated on plan of care and expected duration. Pain level reassessed. Patient is alert, oriented x 3, equal unlabored respirations, skin warm/dry/pink. 12:00 Reassessment: Patient appears in no apparent distress at this time. Patient and/or 3 family updated on plan of care and expected duration. Pain level reassessed. Patient is alert, oriented x 3, equal unlabored respirations, skin warm/dry/pink. 13:00 Reassessment: Patient appears in no apparent distress at this time. Patient and/or 3 family updated on plan of care and expected duration. Pain level reassessed. Patient is alert, oriented x 3, equal unlabored respirations, skin warm/dry/pink. Vital Signs: 09:55 BP 130 / 73; Pulse 69; Resp 18; Temp 98.2(O); Pulse Ox 95% on R/A; Weight 74.84 kg; eh3 Height 5 ft. 6 in. ; 10:56 BP 126 / 67; Pulse 63; Resp 16; Pulse Ox 92% on R/A; bc6 12:00 BP 143 / 78; Pulse 69; Resp 18; Pulse Ox 96% on R/A; eh3 13:00 BP 140 / 93; Pulse 69; Resp 18; Pulse Ox 96% on R/A; eh3 09:55 Body Mass Index 26.63 (74.84 kg, 167.64 cm) 3 ED Course: 09:51 Patient arrived in ED. mg5 09:51 Arm band placed on Patient placed in an exam room, on a stretcher. ll1 09:52 Adrien Rasmussen PA is PHCP. cp 09:52 Aric Lazar MD is Attending Physician. cp 09:55 Patient has correct armband on for positive identification. Bed in low position. Call [facility] light in reach. Side rails up X2. Provided Education on: use of call aranda. Pulse ox on. NIBP on. 09:55 Inserted saline lock: 22 gauge in left antecubital area, using aseptic technique. Blood eh3 collected. 10:03 Madyson Munoz RN is Primary Nurse. eh3 10:29 CT Traumagram (Head C Spine CAP wo con) In Process Unspecified. EDMS 11:24 Triage completed. eh3 13:00 No provider procedures requiring assistance completed. eh3 13:17 Primary Nurse role handed off by Madyson Munoz RN cp 13:28 Madyson Munoz RN is Primary Nurse. eh3 13:38 Patient transferred, IV remains in place. eh3 Administered Medications: 11:45 Drug: fentaNYL (PF) IVP 25 mcg IVP once Route: IVP; Site: left forearm; eh3 12:30 Follow up: Response: No adverse reaction; Pain is decreased eh3 13:32 Drug: morphine IVP or IV 4 mg IVP once over 4 mins Route: IVP; Infused Over: 4 mins; eh3 Site: left forearm; 13:38 Follow up: Response: No adverse reaction; Medication administered at discharge. eh3 Medication: 13:38 VIS not applicable for this client. eh3 Outcome: 11:44 ER care complete, transfer ordered by . cp 13:38 Transferred by ground EMS to [facility], Transfer form completed. eh3 13:38 Condition: stable 13:38 Instructed on the need for transfer, 13:39 Patient left the ED. eh3 Signatures: Dispatcher [employer] EDMS Adrien Rasmussen PA PA cp Lewis, Lynsay, RN RN 1 Madyson Munoz RN RN 3 Анна [place] [facility] Fany Reilly mg5 Corrections: (The following items were deleted from the chart) 21:21 13:15 Patient left the ED. eh3 eh3
[2023-08-28] MEDS ORDERED: FENTANYL CITR 100 MCG/2 ML ONE (12:00)
[2023-08-28 13:19] LABS: Specific Gravity > 1.030 (1.005-1.030); Transitional Epithelial <5 /HPF (None Seen); Urine Bacteria None Seen /HPF (<20); Urine Bilirubin NEGATIVE (Negative); Urine Blood Negative (Negative); Urine Clarity Extremely Turbid (Clear); Urine Color Yellow (Yellow); Urine Glucose TRACE (Negative); Urine Protein 1+ (Negative); Urine Urobilinogen 1+ (Normal)
[2023-08-28 13:21] VITALS: TEMP 98.2
[2023-08-28 13:23] VITALS: O2SAT 96
[2023-08-28 13:24] VITALS: BP 140/93
[2023-08-28] MEDS ORDERED: MORPHINE 4 MG/ML SYR ONE (13:45)
== END 2023-08-28 13:39 | disposition short-term general hospital (02) ==
LOC: ER 09:46
DX: M54.50 Low back pain, unspecified (principal); R51.9 Headache, unspecified; W18.30XA Fall on same level, unspecified, initial encounter; G35 Multiple sclerosis; Z88.6 Allergy status to analgesic agent
CPT/HCPCS: 85025; 81001; 80048; 36415; 86900; 86850; 86901; 70450; 71250; 72125; 96375; 96374; 99285; J3010